=== PATIENT | male | born 1930 | race Caucasian/White ===

== ENCOUNTER 2016-04-09 11:14 | Inpatient (IN) | payer OTHER ==
[~2016-04-09] VITALS: Ht 177.8 cm; Wt 96.6 kg
[~2016-04-09 11:14] MED LIST: ACTOS15 M1 PO; AMLODIPINE BESY10 M1 PO; ATENOLOL50 M1 PO; CALCITRIOL0.25 MC1 PO; COUMADIN2 M1 PO; DRISDOL50000 UNIT PO; FUROSEMIDE40 M1 PO; LISINOPRIL40 M1 PO; ONGLYZA2.5 M1 PO; TERAZOSIN HCL10 M1 PO; ZOCOR20 M1 PO
--- NOTE | 2016-04-09 11:29 | NUR ---
85 Y/O MALE S/O SOB AND "A LITTLE" SWELLING TO BILATERAL LEGS X 1 WEEK; HX CHF AND FEELS THE SAME. C/O "DRY" COUGH. PT STATES HE TAKES LASIX DAILY, UNSURE IF HE TOOK YET TODAY. DENIES C/P. ALSO C/O DECREASED APPETITE/PO INTAKE. AFEBRILE.
--- NOTE | 2016-04-09 11:34 | ED DYSPNEA/ASTHMA COMPLAINT ---
History of Present Illness General Chief Complaint: Dyspnea (COPD, CHF, Other) Stated Complaint: SOB, DIFF BREATHING, HX CHF Source: patient, family, old records Exam Limitations: no limitations Vital Signs & Intake/Output Vital Signs & Intake/Output Vital Signs Date Time Temp Pulse Resp B/P Pulse O2 O2 Flow FiO2 Ox Delivery Rate 04/09 1350 50 24 141/62 93 Nasal 2.0L Cannula 04/09 1300 95 Nasal 2.0L Cannula 04/09 1128 97.1 65 18 143/61 93 Room Air Allergies Coded Allergies: NO KNOWN ALLERGIES (01/04/16) Reconcile Medications Amlodipine Besylate 10 MG TABLET 1 TAB PO QPM HEART (Reported) Atenolol 50 MG TABLET 1 TAB PO DAILY HEART (Reported) Calcitriol 0.25 MCG CAPSULE 1 CAP PO DAILY SUPPLEMENT (Reported) Ergocalciferol (Vitamin D2) (Drisdol) 50,000 UNIT CAPSULE 1 CAP PO Q 2 WEEKS SUPPLEMENT (Reported) Furosemide 40 MG TABLET 1 TAB PO DAILY WATER PILL (Reported) Lisinopril 40 MG TABLET 1 TAB PO DAILY HTN (Reported) Pioglitazone HCl (Actos) 15 MG TABLET 1 TAB PO QPM DIABETES (Reported) Saxagliptin HCl (Onglyza) 2.5 MG TABLET 1 TAB PO QPM DIABETES (Reported) Simvastatin (Zocor*) 20 MG TABLET 1 TAB PO QPM CHOLESTEROL (Reported) Terazosin HCl 10 MG CAPSULE 10 CAP PO QPM BPH (Reported) Warfarin Sodium (Coumadin) 2 MG TABLET 1 TAB PO AD BLOOD THINNER (Reported) Triage Note: 85 Y/O MALE S/O SOB AND "A LITTLE" SWELLING TO BILATERAL LEGS X 1 WEEK; HX CHF AND FEELS THE SAME. C/O "DRY" COUGH. PT STATES HE TAKES LASIX DAILY, UNSURE IF HE TOOK YET TODAY. DENIES C/P. ALSO C/O DECREASED APPETITE/PO INTAKE. AFEBRILE. Triage Nurses Notes Reviewed? yes Onset: Gradual Duration: week(s): (1) Timing: recent history Severity: moderate Activities at Onset: none Prior Episodes/Possible Cause: occasional episodes Modifying Factors: Improves With: immobilization. Worsens With: movement. Associated Symptoms: cough HPI: Patient is an 85-year-old male with history of CHF, hypertension resenting to the emergency department complaining of increasing shortness of breath or tingling on for the past one week. Dyspnea is worse with exertion. Denies chest pain palpitations. No nausea vomiting fevers or chills. He reports similar episode 3-4 months ago when he was admitted for CHF exacerbation. He does not use supplemental oxygen at home. His camera person is Dr. Romero. He missed his most recent checkup appointment and is rescheduled for next month. He does report increased lower extremity edema. Shortness of breath is also worse when he lays down. Denies taking anything to help with symptoms. He does take 40 mg Lasix daily, unsure if he took a already today. (JOSUE NUÑEZ) Past History Travel History Traveled to [place] past 21 day No Medical History Any Pertinent Medical History? 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 No (JOSUE NUÑEZ) Review of Systems Review of Systems Constitutional: Reports: malaise. Comments Review of systems: See HPI, All other systems negative. Constitutional, no chills fever or weight loss HEENT: No visual changes no sore throat no congestion Cardiovascular: No chest pain ,palpitation Skin, no jaundice no rashes Respiratory: No sputum or hemoptysis GI: No nausea no vomiting : No dysuria No hematuria Muscle skeletal: no back pain, no neck pain, Neurologic: No numbness no confusion NO PAYNE Psych: No stress anxiety Immunology: No splenectomy or history of AIDS (JOSUE NUÑEZ) Physical Exam Physical Exam General Appearance: well developed/nourished, alert, awake, mild distress Respiratory: decreased breath sounds, crackles, wheezing Comments: Well-developed well-nourished person in mild respiratory distress HEENT: Pupils equally round and reactive to light and accommodation. Nose is atraumatic. External auditory canal and Tympanic membranes clear. Pharynx normal. No swelling or edema. Neck: Normal inspection Back: Nontender Cardiovascular: Regular rate and rhythms no murmurs rubs or gallops, normal JVP Respiratory: Chest nontender. No respiratory distress.scattered wheezing and rhonchi at the bases to auscultation bilaterally Abdomen: Soft, obese, nontender nondistended, no appreciable organomegaly. Normal bowel sounds. No rebound or guarding. Extremity: 3+ pitting edema extending from the dorsum of both feet up to the patellas bilaterally. Nontender calves. Pedal pulses are 1+ bilaterally. Capillary refills intact in lower extremities bilaterally. Neuro: Alert oriented x3 Skin: No appreciable rash on exposed skin, skin is warm and dry. Psych: Mood and affect is normal, memory and judgment is normal. Core Measures ACS in differential dx? Yes Severe Sepsis Present: No Septic Shock Present: No (JESSICA MORGAN,JOSUE) Progress Differential Diagnosis: asthma, AMI, bronchitis, costochondritis, CHF, COPD, pulmonary embolism, pneumonia, pneumothorax Plan of Care: Orders Procedure Date/time Status Regular Diet 04/09 D Active OXYGEN SETUP (GEN) 04/09 1351 Active Saline Lock 04/09 1351 Active Admit to inpatient 04/09 1351 Active Vital Signs 04/09 1351 Active Activity/Ambulation 04/09 1351 Active Code Status 04/09 1351 Active EKG 04/09 1258 Active Telemetry/Metallurgical Tester 04/09 1133 Active TROPONIN LEVEL 04/09 1133 Complete MAGNESIUM 04/09 1133 Complete COMPREHENSIVE METABOLIC PANEL 04/09 1133 Complete CBC WITHOUT DIFFERENTIAL 04/09 1133 Complete B-TYPE NATRIURETIC PEP (BNP) 04/09 1133 Complete EKG 04/09 1115 Active Laboratory Tests 04/09/16 1142: Anion Gap 12, Estimated GFR 26 L, BUN/Creatinine Ratio 20.8, Glucose 188 H, Calcium 8.7, Magnesium 2.2, Total Bilirubin 0.6, AST 22, ALT 19 L, Alkaline Phosphatase 72, Troponin I 0.02, Zaj-H-Wjjsfwrogli Pept 5160 H, Total Protein 6.6, Albumin 3.7, Globulin 2.9, Albumin/Globulin Ratio 1.3, CBC w Diff NO MAN DIFF REQ, RBC 3.55 L, MCV 93.1, MCH 30.5, RDW 15.8 H, MPV 11.7 H, Gran % 82.7 H, Lymphocytes % 6.3 L, Monocytes % 9.1, Eosinophils % 1.8, Basophils % 0.1, Absolute Granulocytes 6.6 H, Absolute Lymphocytes 0.5 L, Absolute Monocytes 0.7 H, Absolute Eosinophils 0.1, Absolute Basophils 0, PUBS MCHC 32.8 L Diagnostic Imaging: Viewed by Me: Radiology Read. Discussed w/RAD: Radiology Read. Radiology Impression: PATIENT: JOHN SARMIENTO JR PRESENT AGE: 85 PATIENT ACCOUNT NO: [id number] : 31 LOCATION: [facility] ORDERING PHYSICIAN: JOSUE MORGAN SERVICE DATE: 04/09/16 EXAM TYPE: RAD - XRY-PORTABLE CHEST XRAY EXAMINATION: XR PORTABLE CHEST CLINICAL INFORMATION: SOB. COMPARISON: Chest portable 01/07/2016. TECHNIQUE: Portable view of the chest was obtained. FINDINGS: The lungs are expanded with no acute pneumonic process seen. However bibasilar process cannot be excluded. The heart size is enlarged with normal-appearing pulmonary vascularity. No gross bony abnormality seen. IMPRESSION: Hypoexpanded lungs with no acute pneumonic process seen. No major change from 01/07/2016. DICTATED BY: CARIN ALLISON MD DATE/TIME DICTATED:04/09/161207 DISTANCE EDUCATION COORDINATOR:BENJI DATE/TIME TRANSCRIBED:1207 CONFIDENTIAL, DO NOT COPY WITHOUT APPROPRIATE AUTHORIZATION. < Electronically signed in Other Vendor System> SIGNED BY: CARIN ALLISON MD 1212 Initial ED EKG: SINUS RHYTHM AT 67 BPM, FIRST-DEGREE av BLOCK, NONSPECIFIC INTRAVENTRICULAR CONDUCTION DELAY Comments: Arrival patient medicated with IV Lasix 60 mg. Also given DuoNeb treatment. Patient given urinal for urinary output. We will check I's and O's. Ambulatory oxygen saturation without any supplemental oxygen was down to 85%. Patient is in moderate respiratory distress with ambulation. Patient requiring supplemental oxygen. Patient will require admission for CHF. Close monitoring of creatinine during IV Lasix throughout hospital stay. Cardiology consult, pulmonology consulT. (JESSICA MORGAN,JOSUE) Departure Departure Time of Disposition: 1326 Disposition: STILL A PATIENT Condition: Stable Clinical Impression Primary Impression: CHF exacerbation Qualifiers: Congestive heart failure type: unspecified congestive heart failure type Qualified Code: I50.9 - Heart failure, unspecified Secondary Impressions: Fluid overload Qualifiers: Hypervolemia type: unspecified Qualified Code: E87.70 - Fluid overload, unspecified Hypoxia Referrals: NAV ROJAS MD (PCP/Family) Departure Forms: Customer Survey General Discharge Information Admission Note Spoke With: PEPE QUESADA MD Documentation of Exam: Documentation of any treatments & extenuating circumstances including Concerns Regarding Discharge (functional status, medication knowledge or non-compliance, living conditions, etc.) that warrant an admission rather than observation: Patient requiring supplemental oxygen which is new for this patient. Requiring IV diuretics for fluid overload, he will also require serial CMP use to monitor kidney function all receiving diuretics. Patient will need cardiology consultation, may need pulmonology consultation. Discharge at this time is medically harmful. (JOSUE NUÑEZ) PA/DELIVERY TABLE FEEDER Co-Sign Statement Statement: ED Attending supervision documentation- x I saw and evaluated the patient. I have also reviewed all the pertinent lab results and diagnostic results. I agree with the findings and the plan of care as documented in the PA's/DELIVERY TABLE FEEDER's documentation. [] I have reviewed the ED Record and agree with the PA's/DELIVERY TABLE FEEDER's documentation. [] Additions or exceptions (if any) to the PAs/DELIVERY TABLE FEEDER's note and plan are summarized below: [] (SANTA DOMINGUEZ,TONEY) Critical Care Note Critical Care Note Critical Care Time: 30-74 min (JOSUE NUÑEZ)
--- NOTE | 2016-04-09 11:45 | NUR ---
LABS DRAWN AND SENT (BLUE,SST,PINK,LAV,JEAN BAPTISTE)
--- NOTE | 2016-04-09 11:48 | NUR ---
O2 SAT 85% ON ROOM AIR, 02 APPLIED AT 2L, INCREASED TO 92%.
[2016-04-09 11:50] LABS: ABSOLUTE BASOPHIL COUNT 0 /CUMM (0.0-0.2); ABSOLUTE EOSINOPHIL COUNT 0.1 /CUMM (0.0-0.7); ABSOLUTE GRANULOCYTE CT 6.6 /CUMM (1.4-6.5); ABSOLUTE LYMPH COUNT 0.5 /CUMM (1.2-3.4); ABSOLUTE MONOCYTE COUNT 0.7 /CUMM (0.10-0.60); BASOPHIL % 0.1 % (0.0-2.0); EOSINOPHIL % 1.8 % (0-5); GRANULOCYTE % 82.7 % (42.2-75.2); MEAN CORPUSCULAR HGB 30.5 PG (27.0-31.0); MEAN CORPUSCULAR HGB CONC 32.8 G/DL (33.0-37.0); MEAN CORPUSCULAR VOLUME 93.1 FL (80.0-94.0); MEAN PLATELET VOLUME 11.7 FL (7.4-10.4); PLATELET COUNT 101 /CUMM (130-400); RBC DISTRIBUTION WIDTH 15.8 % (11.5-14.5); RED BLOOD CELL CT 3.55 /CUMM (4.70-6.10)
--- NOTE | 2016-04-09 12:12 | RADIOLOGY REPORT ---
EXAMINATION: XR PORTABLE CHEST CLINICAL INFORMATION: SOB. COMPARISON: Chest portable 01/07/2016. TECHNIQUE: Portable view of the chest was obtained. FINDINGS: The lungs are expanded with no acute pneumonic process seen. However bibasilar process cannot be excluded. The heart size is enlarged with normal-appearing pulmonary vascularity. No gross bony abnormality seen. IMPRESSION: Hypoexpanded lungs with no acute pneumonic process seen. No major change from 01/07/2016.
--- NOTE | 2016-04-09 13:29 | NUR ---
TO BE ADMITTED USING URINAL TO VOID AFTER LASIX
--- NOTE | 2016-04-09 15:08 | History & Physical ---
See Addendum MELCHOR DOMINGUEZ,[facility] 04/09/16 1508: General Information and HPI MD Statement: I have seen and personally examined JOHN SARMIENTO Brent KHAN and documented this H &P. The patient is a 85 year old M who presented with a patient stated chief complaint of shortness of breath. Source of Information: patient, old records Exam Limitations: no limitations History of Present Illness: This is a 85-year-old male with past medical history of hypertension, diabetes mellitus, hyperlipidemia, chronic kidney disease, stroke on Coumadin 2 mg for a long time on //// presented with progressive shortness breath. As per patient, he has been getting progressively short of breath for the past 2 days, associated with dry cough, denied any fever, chills, sick contacts, any recent travels. He also noticed worsening bilateral lower leg edema. At baseline, is not on any home oxygen, he sleeps in his recliner secondary to orthopnea and nocturnal dyspnea. He denied any nausea, vomiting, chest pain, palpitation, dizziness, abdominal pain, urinary symptoms, any changes in bowel movements, recent travels, any sick contacts. He was admitted in December of last year for same complaints and was treated for CHF exacerbation. He received his flu this year and pneumonia vaccine(last year) He lives with his in his home and at baseline is able to do all his daily chores by himself without any difficulty, he has never smoked, drinks alcohol occasionally but denies any illicit drug abuse. He follows Dr.Rabindran Rojas as his primary care physician and Dr. Romero his cleaner wall. Allergies/Medications Allergies: Coded Allergies: NO KNOWN ALLERGIES (01/04/16) Home Med list Amlodipine Besylate 10 MG TABLET 1 TAB PO QPM HEART (Reported) Atenolol 50 MG TABLET 1 TAB PO DAILY HEART (Reported) Calcitriol 0.25 MCG CAPSULE 1 CAP PO DAILY SUPPLEMENT (Reported) Ergocalciferol (Vitamin D2) (Drisdol) 50,000 UNIT CAPSULE 1 CAP PO Q 2 WEEKS SUPPLEMENT (Reported) Furosemide 40 MG TABLET 1 TAB PO DAILY WATER PILL (Reported) Lisinopril 40 MG TABLET 1 TAB PO DAILY HTN (Reported) Pioglitazone HCl (Actos) 15 MG TABLET 1 TAB PO QPM DIABETES (Reported) Saxagliptin HCl (Onglyza) 2.5 MG TABLET 1 TAB PO QPM DIABETES (Reported) Simvastatin (Zocor*) 20 MG TABLET 1 TAB PO QPM CHOLESTEROL (Reported) Terazosin HCl 10 MG CAPSULE 10 CAP PO QPM BPH (Reported) Warfarin Sodium (Coumadin) 2 MG TABLET 1 TAB PO AD BLOOD THINNER (Reported) Compliance With Home Meds: GOOD Past History Travel History Traveled to [place] past 21 day No Medical History Neurological: NONE EENT: NONE Cardiovascular: hypertension, hyperlipidemia, EDEDMA IN LEGS Respiratory: NONE Gastrointestinal: NONE Hepatic: NONE Renal: KIDNEY PROBLEMS Musculoskeletal: NONE Psychiatric: NONE Endocrine: diabetes Blood Disorders: NONE Cancer(s): NONE PERIANESTHESIA NURSE/Reproductive: NONE History of MRSA: No History of VRE: No History of CDIFF: No Pneumonia Vaccine: 04/06/08 Influenza Vaccine: 01/05/16 Surgical History Surgical History: non-contributory Past Family/Social History Family History Relations & Conditions if any Relation not specified for: *No pertinent family history Psychosocial History Where do you live? Home Who Do You Live With? spouse Services at Home: Nursing, None Primary Language: Macedonian Smoking Status: Never Smoked ETOH Use: occasional use Illicit Drug Use: denies illicit drug use Functional Ability ADLs Independent: dressing, eating, toileting, bathing. Ambulation: independent IADLs Independent: shopping, housework, finances, food prep, telephone, transportation , medication admin. Review of Systems Review of Systems Constitutional: Reports: see HPI. Denies: chills, fever. Cardiovascular: Denies: chest pain, palpitations. Respiratory: Reports: see HPI, short of breath. Denies: cough, hemoptysis, sputum production. GI: Denies: abdominal pain, constipation, diarrhea, nausea, vomiting. Genitourinary: Denies: dysuria, frequency. Exam & Diagnostic Data Last 24 Hrs of Vital Signs/I&O Vital Signs Date Time Temp Pulse Resp B/P Pulse O2 O2 Flow FiO2 Ox Delivery Rate 04/09 1350 50 24 141/62 93 Nasal 2.0L Cannula 04/09 1300 95 Nasal 2.0L Cannula 04/09 1128 97.1 65 18 143/61 93 Room Air Intake & Output 04/09 1600 04/09 0800 04/09 0000 Intake Total 10 Output Total 350 Balance -340 Intake, IV 10 Output, Urine 350 Patient 102.058 kg Weight Physical Exam General Appearance Alert, Oriented X3, Cooperative, No Acute Distress Cardiovascular irregularly irregular Lungs bilateral lower lung zones crackles Abdomen Normal Bowel Sounds, Soft, No Tenderness Extremities No Cyanosis, bilateral lower extremity edema 2+ Last 24 Hrs of Labs/Aniket: Laboratory Tests 04/09/16 1142: Anion Gap 12, Estimated GFR 26 L, BUN/Creatinine Ratio 20.8, Glucose 188 H, Calcium 8.7, Magnesium 2.2, Total Bilirubin 0.6, AST 22, ALT 19 L, Alkaline Phosphatase 72, Troponin I 0.02, Ryn-X-Ezahzhlhwpv Pept 5160 H, Total Protein 6.6, Albumin 3.7, Globulin 2.9, Albumin/Globulin Ratio 1.3, CBC w Diff NO MAN DIFF REQ, RBC 3.55 L, MCV 93.1, MCH 30.5, RDW 15.8 H, MPV 11.7 H, Gran % 82.7 H, Lymphocytes % 6.3 L, Monocytes % 9.1, Eosinophils % 1.8, Basophils % 0.1, Absolute Granulocytes 6.6 H, Absolute Lymphocytes 0.5 L, Absolute Monocytes 0.7 H, Absolute Eosinophils 0.1, Absolute Basophils 0, PUBS MCHC 32.8 L Diagnostic Data EKG Results Mobitz type II AV block, heart rate 69, QTC 489 CXR Results Hypoexpanded lungs with no acute pneumonic process seen. Assessment/Plan Assessment: This is a 85-year-old male with past medical history of hypertension, diabetes mellitus, hyperlipidemia, chronic kidney disease, stroke on Coumadin presented with progressive shortness breath. Whiteness upon presentation temperature 97.1 , pulse 65, respiratory rate 18, blood pressure 143/61, satting in high 90s on 2 L of nasal cannula oxygen. Pertinent labs H&H 10.8 and 33, platelets 101, creatinine 2.4, BUN 50, chest x- ray did not show any acute cardiopulmonary findings., Upon arrival he was in moderate respiratory distress with ambulation (satting around 85% )he received 60mg of IV Lasix and supplemental oxygen after which he reported improvement in his symptoms. We will admit the patient is admitted for and monitor for the following conditions: Acute hypoxic respiratory failure secondary to CHF exacerbation: Supplemental oxygen as needed to keep oxygen saturation above 90%. TRC/nebs as needed . BNP 5160 Low-dose IV Lasix 20 mg(secondary to worsening kidney function) twice a day with strict monitoring of I's and O's and daily weights. Patient sees Dr. Romero as his cleaner wall, will get cardiology consult in a.m. Rule out ACS: Continuous cardiac monitoring for any arrhythmias Will trend serial Troponins and EKG VIPUL on chronic kidney disease: Likely secondary to dehydration secondary to poor oral intake, creatinine 2.4 from . Avoid nephrotoxic drugs, lisinopril on hold, repeat BP in a.m. Nephrology consultation a.m., follow-up he'll follow-up with medications. Anemia : H&H low but stable, no active bleeding, will monitor repeat labs History of diabetes mellitus: Insulin sliding scale with frequent fingerstick glucose monitoring Diabetic diet History of hyperlipidemia: Continue home dose of atorvastatin 20 mg daily History of hypertension: We'll continue home dose of amlodipine 10 mg daily along with blood pressure monitoring every shift. History of stroke: Patient has been on Coumadin ever since stroke in 1994. He takes him a gram of Coumadin on Thursday to Thursday, will get INR and dose Coumadin accordingly Diet : Diabetic DVT prophylaxis with Coumadin Patient is full code As Ranked By This Provider Problem List: 1. VIPUL (acute kidney injury) 2. CKD (chronic kidney disease) 3. CHF exacerbation Qualifiers Congestive heart failure type: unspecified congestive heart failure type Qualified Code: I50.9 - Heart failure, unspecified Core Measures/Miscellaneous Acute Coronary Syndrome ACS Diagnosis: No Cerebrovascular Accident CVA/TIA Diagnosis: No Congestive Heart Failure CHF Diagnosis: Yes Date of most recent Echo: 01/06/16 Last Known EF %: 60 Venous Thromboembolism VTE Risk Factors: Acute medical illness, Age > 40 VTE Prophylaxis Ordered Inpt: Pharm- Warfarin No [facility] VTE prophylaxis d/t: No contraindications No VTE Pharm Prophylaxis d/t: No contraindications VTE Diagnosis: No VTE Type: NONE VTE Confirmed by (Test): NONE Severe Sepsis Severe Sepsis Present: No Septic Shock Septic Shock Present: No Miscellaneous Documentation Attending Case Discussed With: RADHA KIM MD Primary Care Physician: NAV ROJAS MD Patient sees these Specialists . Level of Patient Care: General Medicine HAILE BOYER 04/09/16 1525: Resident Review Statement Resident Statement: examined this patient, discussed with international controller, agreed with international controller, reviewed EMR data (avail) Other Findings: 85-year-old male with a past medical history of [id number] diabetes, hypertension, hyperlipidemia, CKD, stroke about 20 years ago currently on warfarin, Hx. of diastolic dysfunction with recent admission for acute CHF, who presented to the ED with chief complaints of worsening shortness of breath going on for the last 2 days. He experience shortness of breath with minimal exertion. He denies any changes in his compliance with medications, diet, denies fever or chills, any recent history of upper respiratory tract infection, denies any history of smoking, any illicit drug use, admits to orthopnea and has been sleeping in a recliner but denies any paroxysmal nocturnal dyspnea. Denies any chest pain, palpitations, nausea, vomiting, abdominal pain, headache, numbness, weakness, but does endorse bilateral lower extremity edema. He recently diascharged from last December for acute CHF exacerbation, he follows up with Dr. Romero . 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 Last seen by his cleaner wall was immediately after his discharge december, he missed his appointment last week. No changes on his medications since his last addmission, he is not on O2 at home. On Examination: Vitals at the time of admission blood pressure 141/62, respiratory rate 24, pulse 50 saturating 93 % on 2 L of oxygen via nasal cannula. He is alert and oriented 3 and in mild respiratory distress. Examination of the neck did not reveal any JVD, no cervical lymphadenopathy. Heart exam : normal S1, S2, no murmurs appreciated. Chest auscultation revealed bilateral crackles in lung bases. Abdominal exam is benign with abdomen soft, nontender, distended with bowel sounds present in all 4 quadrants. Examination of the lower extremities revealed bilateral 1+ edema extending up to the knee. Labs as above ABGs is pending, will f/u Chest x-ray: Hypoexpanded lungs with no acute pneumonic process seen. No major change from 01/07/2016. EKG revealed normal sinus rhythm,second-degree heart block Mobtiz II In the ED he received 60 mg of IV Lasix and treatment with albuterol and ipratropium. He feels slight improvement. Assessment and plan Admit patient to telemetry #Acute CHF exacerbation: Rule out ACS with troponins and EKG at 5:30 PM. first troponin is 0.02 Follow-up echocardiogram Follow-up cardiology consult Start him on Lasix 20 mg IV daily, given his worsened kidney function Strict I's and O's daily weight Will continue Amlodipine. #Bradycardia: Cadiology consult at am Will hold B-patricia #Anemia Will repeat CBC at am #VIPUL on CKD His creatinine: 2.4 has been elevated since last December, it's in his baseline since last December Will place nephrology consult at am Avoid nephrotoxic agents Hold lisinopril Follow-up BEP in a.m. #Chronically on Coumadin for Hx. of stroke: Will check INR STAT #Uqd-vdzafhv-ldnzygfpy diabetes mellitus We will hold his oral hypoglycemic agents NovoLog sliding scale Accu-Cheks 3 times a day at bedtime Follow-up hemoglobin A1c Diet Consistent carb 3 with 2 g sodium DVT prophylaxis On warfarin CODE STATUS Full code RADHA KIM MD 04/09/166: Attending MD Review Statement Attending Statement Attending MD Statement: examined this patient, discuss w/resident/PA/SCREEN TENDER, agreed w/resident/PA/SCREEN TENDER, reviewed EMR data (avail), reviewed images, amended to note Attending Assessment/Plan: 85 yo male with h/o HTN, DM2, HL, CKD, h/o CVA (on Coumadin), and diastolic CHF who presented in the [place] ED on the day of admission with 2 day h/o progressive dyspnea. He also noted progressive swelling of LE and weight gain. Had been watching weights and was told to notify MD if more than 3 lb weight gain. Was scheduled to see Dr. Romero last week, however was unable to keep appointment and Dr. Romero is currently away until April. He did not a mild non-productive cough. No fever, chills, lightheadedness, palpitations, or chest pain. He does note some orthopnea. Physical Exam: VS: T 97.1, P 65, R 18, BP 143/61, PO 93% RA- 95% 2L HEENT: eyes- PERRLA, EOMI crow- moist mucosa Neck: no JVD or bruits Chest: + rales 1/3 lung garcia bilaterally Cor: sl irreg rhythm, nl rate, nl S1, S2, no murm Abd: BS+, distended, non-tender Ext: 2+ edema bilat- right > left, pulses 1+ Neuro: alert & oriented x 3, non-focal exam Labs/Tests- as above Impression/Plan: #Acute on Chronic Diastolic CHF- last ECHO on last admit (01/05) had normal sys function with normal diastolic filling, however prior ECHO suggested diastolic dysfunction. Patient w/o ischemic symptoms and only non-specific lateral ST-T abnormalities that are similar to prior EKG. He stated he was told to notify MD if more than 3 lb weight gain and recognized greater weight gain. Plan: Admit to telemetry. Check serial troponin I's. IV Furosemide (60 mg given in ED) Follow I/O's and daily weights as per CHF protocol. Cardiology consult from Manager Sas covering for Dr. Romero. #CKD/VIPUL- mild increase in Creatinine noted (2.4). Concern with furosemide that may cause ATN if over diuresed. Most c/w diabetic nephropathy. Plan: Follow renal function closely . Agree with nephrology evaluation to follow. #DM2- is on Pioglitazone and Saxagliptin. Concern with renal failure. Plan: Will check glucoscans and use sliding scale insulin. Hold oral agents. Consider Endo consult. Hold Lisinopril at present. #HTN- as above, BP 140's sys. Plan: Continue Atenolol, Amlodipine. Hold Lisinopril as above. #BPH- on Terazosin. Plan: Continue Terazosin. #HL- on Simvastatin. Plan: Continue Simvastatin. #H/O CVA- on Coumadin. Plan: Check INR (not done in ED) and continue Coumadin- INR 2-3. If subtherapeutic consider check venous US LE. #Heart Block- 1 degree and ? Mobitz II on EKG. Has had on holter in past. Plan: Monitor on telemetry. Check Mg. #Chronic Anemia- H/H w/o change. Most likely secondary to renal failure. Plan: Will follow.
--- NOTE | 2016-04-09 16:14 | NUR ---
OFFERS NO COMPLAINTS, AWAITING BED ASSIGNMENT.
--- NOTE | 2016-04-09 17:00 | NUR ---
EKG DONE, TROPONIN DRAWN.
--- NOTE | 2016-04-09 17:00 | NUR ---
INSULIN NOT GIVEN FS DONE AFTER PT HAD EATEN DINNER. (173)
[2016-04-09 18:12] LABS: PT 22.9 SEC (9.4-12.5)
--- NOTE | 2016-04-09 19:01 | NUR ---
SPOKE WITH AFTER SCHOOL PROGRAM ASSISTANT WHO PUT IN ORDER FOR COUMADIN. VERIFIED WITH PT HE HAD NOT TAKEN HIS COUMADIN TODAY AND WILL LOOK FOR ORDER.
--- NOTE | 2016-04-09 19:24 | NUR ---
PHARMACY CALLED FOR MEDS
--- NOTE | 2016-04-09 19:40 | NUR ---
PT MEDICATED WITH COUMADIN AND LIPITOR PER ORDER (SEE MAR). PT RESTING IN RECLINING CHAIR. AWARE OF NO BED UPSTAIRS AT THIS TIME. CALM AND WATCHING TV. SON REMAINS AT BEDSIDE. WILL CTM.
--- NOTE | 2016-04-09 20:01 | NUR ---
URINE TRIO SENT TO LAB
--- NOTE | 2016-04-09 20:59 | NUR ---
PT HAS BED ASSIGNMENT 174-2
--- NOTE | 2016-04-09 21:25 | NUR ---
REPORT GIVEN TO KAYE HOLLINGSWORTH
--- NOTE | 2016-04-09 21:43 | Admission Certification ---
Admission Certification Certification Statement - As attending physician, I certify that at the time of - admission, based on clinical presentation, severity of - symptoms, need for further diagnostic testing and - therapeutic interventions, and risk of adverse outcomes - without in-hospital treatment, in my clinical assessment, - this patient requires an acute hospital stay for a minimum - of two nights or longer. I have also considered psychsocial - factors such as support system, advanced age, financial - issues, cognitive issues, and failed out-patient treatments, - past re-admission history, safety of patient, and lack of - compliance as applicable. Specific rationale supporting this admission is: Patient presents with significant dyspnea, respiratory failure secondary to acute diastolic CHF. Requires admission to telemetry, IV Lasix, Cardiology evaluation, serial troponin I levels.
--- NOTE | 2016-04-09 21:57 | NUR ---
BED IS CLEAN, TRANSPORT CALLED. AWAITING TRANSPORT AND WILL BRING PT UP.
[2016-04-09 22:28] VITALS: BP 142/56
--- NOTE | 2016-04-10 07:26 | PN- Housestaff ---
See Addendum Subjective Follow-up For: CHF exacerbation Tele-Events Since Last Visit: sinus rhythm, first-degree block and PVCs, heart rate 39-74 Subjective: Patient seen and examined this morning. He was sitting comfortably and is a recliner in no acute distress. He remains on 2 L of nasal cannula oxygen satting well and-90s. Afebrile, other vitals remained within normal limits. He reports that he feels much better as compared to yesterday, his diet edema is improving, no other complaints of chest pain, palpitation, dizziness. Review of Systems Constitutional: Denies: chills, fever. Cardiovascular: Reports: orthopena. Denies: chest pain, palpitations. Respiratory: Reports: orthopnea, short of breath. Denies: cough, sputum production. Gastrointestinal: Denies: abdominal pain, constipation, diarrhea, nausea, vomiting. Genitourinary: Denies: dysuria, frequency. Objective Last 24 Hrs of Vital Signs/I&O Vital Signs Date Time Temp Pulse Resp B/P Pulse O2 O2 Flow FiO2 Ox Delivery Rate 04/10 1220 Nasal 2.0L Cannula 04/10 0839 70 122/58 04/10 0838 97.7 70 20 122/58 95 Nasal 2.0L Cannula 04/10 0800 Nasal 2.0L Cannula 04/10 0000 46 142/56 04/09 2240 Nasal 2.0L Cannula 04/09 2228 97.6 62 20 142/56 95 Nasal 2.0L Cannula 04/09 1903 49 22 153/93 95 Nasal 2.0L Cannula 04/09 1635 98.4 84 20 160/72 99 Room Air 2.0L Intake & Output 04/10 1600 04/10 0800 04/10 0000 Intake Total 100 Output Total 250 500 Balance -150 -500 Intake, Oral 100 Output, Urine 250 500 Patient 104.553 kg 103.419 kg Weight Physical Exam General Appearance: Alert, Oriented X3, Cooperative, No Acute Distress Cardiovascular: Regular Rate, Normal S1, Normal S2, No Murmurs Lungs: mild basal b/l lung rales Abdomen: Normal Bowel Sounds, Soft, No Tenderness Extremities: No Clubbing, No Cyanosis, b/l lower ext edema 1+ Current Medications: Current Medications Sig/Nidia Start time Last Medication Dose Route Stop Time Status Admin Acetaminophen 650 MG Q6P PRN 04/09 1545 AC PO Albuterol Sulfate 3 ML Q4P PRN 04/10 1215 AC 04/10 INH 1209 Amlodipine Besylate 10 MG QPM 04/09 2200 AC PO Atenolol 50 MG DAILY 04/10 1000 AC 04/10 PO 0839 Atorvastatin Calcium 20 MG 1700 04/09 1700 AC 04/09 PO 1936 Calcitriol 0.25 MCG DAILY 04/10 1000 AC 04/10 PO 0839 Ergocalciferol 50,000 IU Q 2 WEEKS 04/23 1000 CAN PO Furosemide 20 MG 0800 & 1700 04/10 0800 AC 04/10 IV 0839 Insulin Human Regular 0 TIDAC/HS 04/09 1700 AC 04/10 SC 1255 Patient Medication 1 ED .STK-MED ONE 04/10 1345 DC Teaching ED 04/10 1346 Tamsulosin HCl 0.4 MG DAILY 04/10 1000 AC 04/10 PO 0839 Warfarin Sodium 2 MG COUMADIN 1700 ONE 04/10 1700 UNVr PO 04/10 1701 Warfarin Sodium 2 MG ONCE ONE 04/09 1900 DC 04/09 PO 04/09 1901 1936 Last 24 Hrs of Lab/Aniket Results Last 24 Hrs of Labs/Mics: Laboratory Tests 04/10/16 0630: Anion Gap 9, Estimated GFR 25 L, BUN/Creatinine Ratio 18.8, PT 27.3 H, INR 2.62 H 04/09/16 1959: Urine Color YEL, Urine Clarity CLEAR, Urine pH 6.0, Ur Specific [place] 1.015, Urine Protein TRACE H, Urine Ketones NEG, Urine Nitrite NEG, Urine Bilirubin NEG, Urine Urobilinogen 0.2, Ur Leukocyte Esterase NEG, Ur Microscopic SEDIMENT EXAMINED, Urine RBC RARE, Ur Epithelial Cells RARE, Urine Hemoglobin TRACE-LYSED H, Urine Glucose NEG 04/09/16 1730: Troponin I 0.03 Assessment/Plan Assessment: This is a 85-year-old male with past medical history of hypertension, diabetes mellitus, hyperlipidemia, chronic kidney disease, stroke on Coumadin presented with progressive shortness breath. Whiteness upon presentation temperature 97.1 , pulse 65, respiratory rate 18, blood pressure 143/61, satting in high 90s on 2 L of nasal cannula oxygen. Pertinent labs H&H 10.8 and 33, platelets 101, creatinine 2.4, BUN 50, chest x- ray did not show any acute cardiopulmonary findings., Upon arrival he was in moderate respiratory distress with ambulation (satting around 85% )he received 60mg of IV Lasix and supplemental oxygen after which he reported improvement in his symptoms. We are currently monitoring him for the following conditions: Acute hypoxic respiratory failure secondary to CHF exacerbation: Supplemental oxygen as needed to keep oxygen saturation above 90%. TRC/nebs as needed . BNP 5160 Low-dose IV Lasix 20 mg(secondary to worsening kidney function) twice a day with strict monitoring of I's and O's and daily weights. (Total intake 10 and total output 650 with a negative fluid balance of 640 in past 24 hours) Cardiology consulted, will f/u recs. Rule out ACS: Continuous cardiac monitoring for any arrhythmias Troponins and EKG negative for any acute findings. VIPUL on chronic kidney disease: Likely secondary to dehydration secondary to poor oral intake, creatinine 2.4 from . Avoid nephrotoxic drugs, lisinopril on hold, repeat BP in a.m. Nephrology consultation a.m., follow-up he'll follow-up with medications. Anemia : H&H low but stable, no active bleeding, will monitor repeat labs History of diabetes mellitus: Insulin sliding scale with frequent fingerstick glucose monitoring Diabetic diet History of hyperlipidemia: Continue home dose of atorvastatin 20 mg daily History of hypertension: We'll continue home dose of amlodipine 10 mg daily along with blood pressure monitoring every shift. History of stroke: Patient has been on Coumadin ever since stroke in 1994. He takes him a gram of Coumadin on Thursday to Thursday, will get INR and dose Coumadin accordingly Diet : Diabetic DVT prophylaxis with Coumadin Patient is full code Problem List: 1. CHF exacerbation 2. VIPUL (acute kidney injury) 3. CKD (chronic kidney disease) Pain Ratin Pain Location: none Pain Goal: Remain pain free Pain Plan: mild pp Tomorrow's Labs & Rationales: bep for lytes monitoring in setting of CHF
[2016-04-10 08:31] LABS: PT 27.3 SEC (9.4-12.5)
[2016-04-10 08:38] VITALS: BP 122/58
--- NOTE | 2016-04-10 13:32 | Cons- Endocrinology ---
General Information and HPI Consulting Request Date of Consult: 04/10/16 Requested By: medical team Reason for Consult: uncontrolled diabetes Source of Information: patient Exam Limitations: no limitations History of Present Illness: This 85 year old man has a history of many years of diabetes typre 2. He also has a history of hypertension and chronic kidney disease. He presents with increased shortness of breath felt to be secondary to CHF.The patient has been on pioglitazone and saxagliptin at home. In the hospital he does not seem to require much insulin to control his diabetes. Allergies/Medications Allergies: Coded Allergies: NO KNOWN ALLERGIES (01/04/16) Home Med List: Amlodipine Besylate 10 MG TABLET 1 TAB PO QPM HEART (Reported) Azithromycin 250 MG TABLET 1 TAB PO DAILY lung infection Calcitriol 0.25 MCG CAPSULE 1 CAP PO DAILY SUPPLEMENT (Reported) Ergocalciferol (Vitamin D2) (Drisdol) 50,000 UNIT CAPSULE 1 CAP PO Q 2 WEEKS SUPPLEMENT (Reported) Furosemide 40 MG TABLET 1 TAB PO DAILY WATER PILL (Reported) Lisinopril 20 MG TABLET 1 TAB PO DAILY blood pressure Saxagliptin HCl (Onglyza) 2.5 MG TABLET 1 TAB PO QPM DIABETES (Reported) Simvastatin (Zocor*) 20 MG TABLET 1 TAB PO QPM CHOLESTEROL (Reported) Terazosin HCl 10 MG CAPSULE 10 CAP PO QPM BPH (Reported) Warfarin Sodium (Coumadin) 2 MG TABLET 1 TAB PO AD BLOOD THINNER (Reported) Current Medications: Current Medications Sig/Nidia Start time Last Medication Dose Route Stop Time Status Admin Acetaminophen 650 MG Q6P PRN 04/09 1545 AC PO Albuterol Sulfate 3 ML Q4P PRN 04/10 1215 AC 04/10 INH 1209 Amlodipine Besylate 10 MG QPM 04/09 2200 AC PO Atenolol 50 MG DAILY 04/10 1000 AC 04/10 PO 0839 Atorvastatin Calcium 20 MG 1700 04/09 1700 AC 04/09 PO 1936 Calcitriol 0.25 MCG DAILY 04/10 1000 AC 04/10 PO 0839 Ergocalciferol 50,000 IU Q 2 WEEKS 04/23 1000 CAN PO Furosemide 20 MG 0800 & 1700 04/10 0800 AC 04/10 IV 0839 Insulin Human Regular 0 TIDAC/HS 04/09 1700 AC 04/10 SC 1255 Tamsulosin HCl 0.4 MG DAILY 01/19 1000 AC 04/10 PO 0839 Warfarin Sodium 2 MG ONCE ONE 04/090 DC 04/09 PO 04/09 190 1936 Review of Systems Review of Systems Constitutional: Denies: chills, fever. Cardiovascular: Denies: chest pain. Respiratory: Reports: cough, short of breath. GI: Denies: abdominal pain. Skin: Reports: no symptoms. Neurological/Psychological: Denies: confusion. Hematologic/Endocrine: Denies: polyuria, polydipsia. 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 Home Who Do You Live With? spouse Services at Home: Nursing, None Primary Language: Welsh Smoking Status: Never Smoked ETOH Use: occasional use Illicit Drug Use: denies illicit drug use Functional Ability ADLs Independent: dressing, eating, toileting, bathing. Ambulation: independent IADLs Independent: shopping, housework, finances, food prep, telephone, transportation , medication admin. Exam & Diagnostic Data Last 24 Hrs of Vital Signs/I&O Vital Signs Date Time Temp Pulse Resp B/P Pulse O2 O2 Flow FiO2 Ox Delivery Rate 04/10 1220 Nasal 2.0L Cannula 04/10 0839 70 122/58 04/10 0838 97.7 70 20 122/58 95 Nasal 2.0L Cannula 04/10 0800 Nasal 2.0L Cannula 04/10 0000 46 142/56 04/09 2240 Nasal 2.0L Cannula 04/09 2228 97.6 62 20 142/56 95 Nasal 2.0L Cannula 04/09 1903 49 22 153/93 95 Nasal 2.0L Cannula 04/09 1635 98.4 84 20 160/72 99 Room Air 2.0L 04/09 1350 50 24 141/62 93 Nasal 2.0L Cannula Intake & Output 04/10 1600 04/10 0800 04/10 0000 Intake Total 100 Output Total 250 500 Balance -150 -500 Intake, Oral 100 Output, Urine 250 500 Patient 231 lb 228 lb Weight Vital Signs Date Time Temp Pulse Resp B/P Pulse O2 O2 Flow FiO2 Ox Delivery Rate 04/10 1220 Nasal 2.0L Cannula 04/10 0839 70 122/58 04/10 0838 97.7 70 20 122/58 95 Nasal 2.0L Cannula 04/10 0800 Nasal 2.0L Cannula 04/10 0000 46 142/56 04/09 2240 Nasal 2.0L Cannula 04/09 2228 97.6 62 20 142/56 95 Nasal 2.0L Cannula 04/09 1903 49 22 153/93 95 Nasal 2.0L Cannula 04/09 1635 98.4 84 20 160/72 99 Room Air 2.0L 04/09 1350 50 24 141/62 93 Nasal 2.0L Cannula Intake & Output 04/10 1600 04/10 0800 04/10 0000 Intake Total 100 Output Total 250 500 Balance -150 -500 Intake, Oral 100 Output, Urine 250 500 Patient 231 lb 228 lb Weight Physical Exam General Appearance: well developed/nourished Eyes: Bilateral: normal appearance. Neck: normal inspection Respiratory: decreased breath sounds (bases) Gastrointestinal: distention, possible fluid wave Extremities: swelling (2-3+ of the lower legs) Labs/Aniket Results: Laboratory Tests 04/10 04/09 04/09 0630 1959 1730 Chemistry Sodium (137 - 145 mmol/L) 144 Potassium (3.5 - 5.1 mmol/L) 4.5 Chloride (98 - 107 mmol/L) 111 H Carbon Dioxide (22 - 30 mmol/L) 24 Anion Gap (5 - 16) 9 BUN (9 - 20 mg/dL) 47 H Creatinine (0.7 - 1.2 mg/dL) 2.5 H Estimated GFR (>60 ml/min) 25 L BUN/Creatinine Ratio (7 - 25 %) 18.8 Troponin I (<0.11 ng/ml) 0.03 Coagulation PT (9.4 - 12.5 SEC) 27.3 H INR (0.90 - 1.17) 2.62 H Urines Urine Color (YEL,AMB,STR) YEL Urine Clarity (CLEAR) CLEAR Urine pH (5.0 - 8.0) 6.0 Ur Specific Crowley (1.001 - 1.035) 1.015 Urine Protein (NEG,<30 MG/DL) TRACE H Urine Ketones (NEG) NEG Urine Nitrite (NEG) NEG Urine Bilirubin (NEG) NEG Urine Urobilinogen (0.1 - 1.0 EU/dl) 0.2 Ur Leukocyte Esterase (NEG) NEG Ur Microscopic SEDIMENT EXAMINED Urine RBC (0 - 5 /HPF) RARE Ur Epithelial Cells (NONE,FEW) RARE Urine Hemoglobin (NEG) TRACE-LYSED H Urine Glucose (N MG/DL) NEG Assessment/Plan Assessment/Plan This 85-year-old man with a known history of diabetes for at least 25 years presents with congestive heart failure. He was on pioglitazone and saxagliptin at home. His blood sugars according to the readings he was getting at home were quite good. I agree that we need to discontinue pioglitazone in view of congestive heart failure and fluid retention. We should also leave him off the saxagliptin at this time. It'll take a few weeks for the effects of the pioglitazone to wear off. The patient does not appear to have large insulin requirements based on his present sugar readings and the small amount of medication he was taking at home. Hemoglobin A1c should be checked. We should leave him on a diabetic sodium diet and continue to monitor his sugars. I would change his pre-meal coverage at this time to NovoLog. NovoLog coverage before meals should be 80-150 give 2 units NovoLog, 151 -200 give 3 units NovoLog, 201-250 give 4 units NovoLog, 251-300 give 5 units NovoLog, 301-350 give 6 units NovoLog, 351 of 400 give 7 units NovoLog. A separate bedtime sliding scale NovoLog should be written. Bedtime sliding scale NovoLog should be less than 250 give no insulin, 251-300 give 2 units NovoLog 301-350 give 3 units NovoLog, 351 of 400 give 4 units NovoLog. Do not think he needs to be on basal insulin at this time but this may become necessary at a later point. The patient should have an ultrasound of his abdomen to check for ascites. Consult Acknowledgment - Thank you for your consult request.
--- NOTE | 2016-04-10 15:14 | Cons- Cardiology ---
General Information and HPI Consulting Request Date of Consult: 04/10/16 Requested By: RADHA KIM MD History of Present Illness: Ronnie is an 85 year old male with history of hypertension, dyslipidemia, diabetes and renal insufficiency. He has also had shortness of breath with orthopnea on several occasions in the past. A couple days ago this patient noted shortness of breath beyond his baseline with persistent orthopnea. He has been sleeping in a reclining chair to help his breathing for years. He also noted a worsening of his abdominal swelling and leg swelling, both of which are not completely new symptoms. He denies any cough, fever or chills. He also denies chest pain, pressure, tigthness, lightheadedness or palpitations. There has not been any recent changes to his medications. At his baseline he is only mildly active. Labs on admission were remarkable for a stable but elevated creatinine of 2.5. His chest X-ray did not disclose any pulmonary edema although the lungs were hypoexpanded. The patient's last echocardiogram showed a normal EF of 60% with mild MR, moderate to severe pulmonary hypertension and a small pericardial effusion. Allergies/Medications Allergies: Coded Allergies: NO KNOWN ALLERGIES (01/04/16) Home Med List: Amlodipine Besylate 10 MG TABLET 1 TAB PO QPM HEART (Reported) Atenolol 50 MG TABLET 1 TAB PO DAILY HEART (Reported) Calcitriol 0.25 MCG CAPSULE 1 CAP PO DAILY SUPPLEMENT (Reported) Ergocalciferol (Vitamin D2) (Drisdol) 50,000 UNIT CAPSULE 1 CAP PO Q 2 WEEKS SUPPLEMENT (Reported) Furosemide 40 MG TABLET 1 TAB PO DAILY WATER PILL (Reported) Lisinopril 40 MG TABLET 1 TAB PO DAILY HTN (Reported) Pioglitazone HCl (Actos) 15 MG TABLET 1 TAB PO QPM DIABETES (Reported) Saxagliptin HCl (Onglyza) 2.5 MG TABLET 1 TAB PO QPM DIABETES (Reported) Simvastatin (Zocor*) 20 MG TABLET 1 TAB PO QPM CHOLESTEROL (Reported) Terazosin HCl 10 MG CAPSULE 10 CAP PO QPM BPH (Reported) Warfarin Sodium (Coumadin) 2 MG TABLET 1 TAB PO AD BLOOD THINNER (Reported) Review of Systems Review of Systems: A twelve point review of systems is unremarkable. 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 Home Who Do You Live With? spouse Services at Home: Nursing, None Primary Language: Gambian Smoking Status: Never Smoked ETOH Use: two drinks per day Illicit Drug Use: denies illicit drug use Functional Ability ADLs Independent: dressing, eating, toileting, bathing. Ambulation: independent IADLs Independent: shopping, housework, finances, food prep, telephone, transportation , medication admin. Exam & Diagnostic Data Vital Signs and I&O Vital Signs Date Time Temp Pulse Resp B/P Pulse O2 O2 Flow FiO2 Ox Delivery Rate 04/10 1220 Nasal 2.0L Cannula 04/10 0839 70 122/58 04/10 0838 97.7 70 20 122/58 95 Nasal 2.0L Cannula 04/10 0800 Nasal 2.0L Cannula 04/10 0000 46 142/56 04/09 2240 Nasal 2.0L Cannula 04/09 2228 97.6 62 20 142/56 95 Nasal 2.0L Cannula 04/09 1903 49 22 153/93 95 Nasal 2.0L Cannula 04/09 1635 98.4 84 20 160/72 99 Room Air 2.0L Intake & Output 04/10 1600 04/10 0800 04/10 0000 04/09 1600 04/09 0800 04/09 0000 Intake Total 100 10 Output Total 250 500 350 Balance -150 -500 -340 Intake, IV 10 Intake, Oral 100 Output, Urine 250 500 350 Patient 231 lb 228 lb 225 lb Weight Physical Exam: General: WD/obese male in NAD; alert and oriented x 3 HEENT: NC/AT, PERRL, EOMI Neck: no JVD, no carotid bruit Heart: RRR w/o murmur Lungs: clear bilaterally Abdomen: soft, obese, distended without tympany, positive fluid wave, +ve bowel sounds Extremities: 2+ leg edema bilaterally Assessment/Plan Assessment/Plan * This patient does not appear to have left heart failure although right heart failure is possible. I did not note any JVD while the patient was sitting up but he has had a prior echocardiogram that showed pulmonary hypertension and a small pericardial effusion which can cause symptoms of right heart failure. Certainly ascites and lower extremity edema are symptoms associated with RV failure although other etiologies of these physical findings should be considered. * I recommend a workup including a repeat echocardiogram to evaluated for RV dysfunction, a persistent or worsening pericardial effusion and to assess his RV pressures. Please check his TSH and free T4, check urine for protein and if elevated consider a 24 hours protein to assess for nephrotic syndrome. Recheck his lipid profile. Obtain an abdominal ultrasound. * The patient's shortness of breath is likely due to restriction of lung expansion in the setting of a massively enlarged and firm abdomen combined with overall obesity and deconditioning. Again, the abdominal ultrasound may help in determining if there is ascites and if so consideration should be given to paracentesis. Hold coumadin for now. I agree with stopping Actos since this can promote fluid overload and CHF. Stop Amlodipine since this medication can also cause fluid retention. Continue Lasix at 40mg IV while following his BUN, creatinine and potassium. Consult Acknowledgment - Thank you for your consult request.
[2016-04-10 16:02] VITALS: BP 120/64
--- NOTE | 2016-04-10 18:59 | ULTRASOUND REPORT ---
EXAMINATION: US ABDOMEN LIMITED CLINICAL INFORMATION: Abdominal distention.. COMPARISON: None TECHNIQUE: Real-time imaging of the right upper quadrant abdominal viscera. Color Doppler exam utilized. FINDINGS: FREE FLUID: There is a small left pleural effusion at the lung base. There is no abdominal ascites. IMPRESSION: No abdominal ascites. Small left pleural effusion.
--- NOTE | 2016-04-10 19:12 | ECHOCARDIOGRAM REPORT ---
JOHN SARMIENTO Age: 85 : 1930 Gender: M Exam Date: 04/10/2016 10:26 Exam Location: [facility] Ht (in): 70 Wt (lb): 225 BSA: 2.28 BP: 160 / 72 Ordering Physician: HAILE SANTORO MD Referring Physician: HAILE SANTORO MD Technologist: Fox Thompson [facility] Room Number: 174-02 Indications: ARRHYTHMIAS Rhythm: Sinus Technical Quality: Fair FINDINGS Left Ventricle Normal size left ventricle. No obvious regional wall motion abnormalities. Left ventricular wall thickness moderately increased. Normal left ventricular ejection fraction estimated at 60-65%. Right Ventricle Normal right ventricular size and function. Right Atrium Right atrial dilatation. Left Atrium Moderate left atrial dilatation. Mitral Valve Mild thickening/calcification of the anterior mitral valve leaflet. Mitral annular calcification. [id number] mitral regurgitation. Aortic Valve Trileaflet aortic valve. Diffuse thickening (sclerosis) of the aortic valve cusps without reduced excursion. No aortic stenosis. No aortic regurgitation. Tricuspid Valve Tricuspid valve not well visualized, grossly normal. Mild-to- moderate tricuspid regurgitation. Right ventricular systolic pressure estimated at 42 mmHg. Pulmonic Valve Pulmonic valve not well visualized, grossly normal. Pericardium Small pericardial effusion. Left pleural effusion. Great Vessels Mildly dilated proximal ascending aorta (tube). CONCLUSIONS 1. Moderate aortic sclerosis is present with no valvular stenosis or insufficiency. 2. Thickening and calcification of the mitral leaflets is present with anular calcification and mild to moderate mitral insufficiency with moderate left atrial enlargement. 3. A very small posterior pericardial effusion is present. 4. A moderate sized left pleural effusion is present. 5. The left ventricular chamber size and systolic function appear normal with mild to moderate concentric hypertrophy and no obvious resting wall motion abnormalities. 6. The right heart structures are grossly normal with mild to moderate tricuspid insufficiency and no significant pulmonary hypertension. 7. Minimal dilatation of the ascending aorta is present Aniya Watt M.D. (Electronically Signed) Final Date: 10 April 2016 19:11 MEASUREMENTS (Male / Female) Normal Values 2D ECHO LV Diastolic Diameter PLAX 4.7 cm 4.2 - 5.9 / 3.9 - 5.3 cm LV Systolic Diameter PLAX 3.6 cm 2.1 - 4.0 cm LV Fractional Shortening PLAX 23.4 % 25 - 46 % LV Ejection Fraction 2D Teich 46.8 % IVS Diastolic Thickness 1.6 cm LVPW Diastolic Thickness 1.4 cm LV Relative Wall Thickness 0.6 LVOT Diameter 1.9 cm Aortic Root Diameter 3.8 cm LA Systolic Diameter LX 4.8 cm 3.0 - 4.0 / 2.7 - 3.8 cm LV Ejection Fraction MOD BP 67.1 % >= 55 % LV Diastolic Length 4C 10.0 cm 6.9 - 10.3 cm LV Diastolic Area 4C 44.1 cm LV Diastolic Volume MOD 4C 158.0 cm LV Ejection Fraction MOD 4C 67.1 % LV Stroke Volume MOD 4C 106.0 cm LV Systolic Length 4C 8.0 cm LV Systolic Area 4C 22.1 cm LV Systolic Volume MOD 4C 52.0 cm LV Ejection Fraction MOD 2C 63.8 % LV Diastolic Volume 4C AL 165.3 cm 85 - 139 / 69 - 109 cm LV Systolic Volume 4C AL 52.1 cm LV Ejection Fraction 4C AL 68.5 % LV Stroke Volume 4C AL 113.2 cm LV Ejection Fraction 2C AL 66.2 % LA Volume 81.0 cm 18 - 58 / 22 - 52 cm Ascending Aorta Diameter 3.3 cm DOPPLER AV Peak Velocity 149.0 cm/s AV Peak Gradient 8.9 mmHg AV Mean Velocity 100.0 cm/s AV Mean Gradient 5.0 mmHg AV Velocity Time Integral 32.2 cm LVOT Peak Velocity 92.5 cm/s LVOT Peak Gradient 3.4 mmHg LVOT Mean Velocity 68.2 cm/s LVOT Mean Gradient 2.0 mmHg LVOT Velocity Time Integral 20.6 cm LVOT Stroke Volume 58.4 cm AV Area Cont Eq vti 1.8 cm AV Area Cont Eq pk 1.8 cm MV Peak Velocity 138.0 cm/s MV Peak Gradient 7.6 mmHg MV Mean Velocity 90.4 cm/s MV Mean Gradient 4.0 mmHg Mitral E Point Velocity 104.0 cm/s MV PHT Velocity 149.0 cm/s MV Deceleration Powell 708.0 cm/s MV Pressure Half Time 63.1 ms MV Area PHT 3.5 cm MV Deceleration Time 173.0 ms TR Peak Velocity 326.0 cm/s TR Peak Gradient 42.5 mmHg PV Peak Velocity 114.0 cm/s PV Peak Gradient 5.2 mmHg PV Mean Velocity 77.0 cm/s PV Mean Gradient 3.0 mmHg PV Velocity Time Integral 23.6 cm LV E' Lateral Velocity 12.4 cm/s Mitral E to LV E' Lateral Ratio 8.4 LV E' Septal Velocity 7.5 cm/s Mitral E to LV E' Septal Ratio 13.8
--- NOTE | 2016-04-10 19:17 | Cons- Cardiology ---
General Information and HPI Consulting Request Date of Consult: 04/10/16 Requested By: RADHA KIM MD Reason for Consult: worsening dyspnea Source of Information: patient, old records History of Present Illness: Mr. Arango is a very nice 85 year old male with a history of HFpEF who is usually followed by Dr. Aldo Romero who I am covering for today. He was last seen by Dr. Romero several months ago and has a followup visit scheduled for April. 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 He is now admitted to the hospital with progressive dyspnea over the last several weeks and some worsening of his leg edema. He denies any other cardiovascular symptoms. He notes to me that he has not been enrolled in the CHF clinic previously. His last admission was in December of 2015 for CHF exacerbation. Today he is feeling somewhat better after about 800 cc diuresis. Allergies/Medications Allergies: Coded Allergies: NO KNOWN ALLERGIES (01/04/16) Home Med List: Amlodipine Besylate 10 MG TABLET 1 TAB PO QPM HEART (Reported) Atenolol 50 MG TABLET 1 TAB PO DAILY HEART (Reported) Calcitriol 0.25 MCG CAPSULE 1 CAP PO DAILY SUPPLEMENT (Reported) Ergocalciferol (Vitamin D2) (Drisdol) 50,000 UNIT CAPSULE 1 CAP PO Q 2 WEEKS SUPPLEMENT (Reported) Furosemide 40 MG TABLET 1 TAB PO DAILY WATER PILL (Reported) Lisinopril 40 MG TABLET 1 TAB PO DAILY HTN (Reported) Pioglitazone HCl (Actos) 15 MG TABLET 1 TAB PO QPM DIABETES (Reported) Saxagliptin HCl (Onglyza) 2.5 MG TABLET 1 TAB PO QPM DIABETES (Reported) Simvastatin (Zocor*) 20 MG TABLET 1 TAB PO QPM CHOLESTEROL (Reported) Terazosin HCl 10 MG CAPSULE 10 CAP PO QPM BPH (Reported) Warfarin Sodium (Coumadin) 2 MG TABLET 1 TAB PO AD BLOOD THINNER (Reported) Current Medications: Current Medications Sig/Nidia Start time Last Medication Dose Route Stop Time Status Admin Acetaminophen 650 MG Q6P PRN 04/09 1545 AC PO Albuterol Sulfate 3 ML Q4P PRN 04/10 1215 AC 04/10 INH 1209 Amlodipine Besylate 10 MG QPM 04/09 2200 DC PO Atenolol 50 MG DAILY 04/10 1000 AC 04/10 PO 0839 Atorvastatin Calcium 20 MG 1700 04/09 1700 AC 04/10 PO 1723 Calcitriol 0.25 MCG DAILY 04/10 1000 AC 04/10 PO 0839 Furosemide 40 MG 0800 & 1700 04/10 1700 AC 04/10 IV 1723 Furosemide 20 MG 0800 & 1700 04/10 0800 DC 04/10 IV 0839 Insulin Human Regular 0 TIDAC/HS 04/09 1700 AC 04/10 SC 1723 Patient Medication 1 ED .STK-MED ONE 04/10 1345 DC Teaching ED 04/10 1346 Tamsulosin HCl 0.4 MG DAILY 04/10 1000 AC 04/10 PO 0839 Warfarin Sodium 2 MG COUMADIN 1700 ONE 04/10 1700 CAN PO 04/10 1701 Past History Travel History Traveled to [place] past 21 day No Medical History Blood Transfusion Hx: Yes Neurological: CVA ON COUMADIN EENT: macular degeneration Cardiovascular: CHF, hypertension, hyperlipidemia, leg edema Respiratory: NONE Gastrointestinal: NONE Hepatic: NONE Renal: KIDNEY PROBLEMS Musculoskeletal: NONE Psychiatric: NONE Endocrine: diabetes Blood Disorders: NONE Cancer(s): NONE AUDIO OPERATOR/Reproductive: NONE Surgical History Surgical History: umbilical hernia repair Family History Relations & Conditions If Any: Relation not specified for: *No pertinent family history Psychosocial History Where Do You Live? Home Who Do You Live With? spouse Services at Home: Nursing, None Primary Language: [place] Smoking Status: Never Smoked ETOH Use: two drinks per day Illicit Drug Use: denies illicit drug use Functional Ability ADLs Independent: dressing, eating, toileting, bathing. Ambulation: independent IADLs Independent: shopping, housework, finances, food prep, telephone, transportation , medication admin. Exam & Diagnostic Data Vital Signs and I&O Vital Signs Date Time Temp Pulse Resp B/P Pulse O2 O2 Flow FiO2 Ox Delivery Rate 04/10 1602 98.2 76 20 120/64 97 Nasal 2.0L Cannula 04/10 1220 Nasal 2.0L Cannula 04/10 0839 70 122/58 04/10 0838 97.7 70 20 122/58 95 Nasal 2.0L Cannula 04/10 0800 Nasal 2.0L Cannula 04/10 0000 46 142/56 04/09 2240 Nasal 2.0L Cannula 04/09 2228 97.6 62 20 142/56 95 Nasal 2.0L Cannula Intake & Output 04/10 1600 04/10 0800 04/10 0000 04/09 1600 04/09 0800 04/09 0000 Intake Total 480 100 10 Output Total 500 250 500 350 Balance -20 -150 -500 -340 Intake, IV 10 Intake, Oral 480 100 Output, Urine 500 250 500 350 Patient 231 lb 228 lb 225 lb Weight Physical Exam: General: WD, WN, WM in NAD with VSS HEENT: normal Neck: JVP normal, Carotids normal bilaterally. Chest: scattered rhoncho Heart: S1, S2, 1-2 / 6 systolic murmur Abdomen: Normal Ext: LE edema PV: normal bilaterally Labs/Aniket Results: Laboratory Tests 04/10 04/09 04/09 0630 1959 1730 Chemistry Sodium (137 - 145 mmol/L) 144 Potassium (3.5 - 5.1 mmol/L) 4.5 Chloride (98 - 107 mmol/L) 111 H Carbon Dioxide (22 - 30 mmol/L) 24 Anion Gap (5 - 16) 9 BUN (9 - 20 mg/dL) 47 H Creatinine (0.7 - 1.2 mg/dL) 2.5 H Estimated GFR (>60 ml/min) 25 L BUN/Creatinine Ratio (7 - 25 %) 18.8 Troponin I (<0.11 ng/ml) 0.03 Triglycerides (<150 mg/dL) 86 Cholesterol (< 200 MG/DL) 99 LDL Cholesterol, Calc (65 - 129 mg/dL) 41 L HDL Cholesterol (40 - 60 mg/dL) 41 Cholesterol/HDL Ratio (0.00 - 4.88 %) 2 TSH (0.270 - 4.200 uIU/mL) 6.240 H Free T4 (0.85 - 1.93 ng/dL) 1.20 Total T3 (0.97 - 1.69 ng/mL) 1.04 Coagulation PT (9.4 - 12.5 SEC) 27.3 H INR (0.90 - 1.17) 2.62 H Urines Urine Color (YEL,AMB,STR) YEL Urine Clarity (CLEAR) CLEAR Urine pH (5.0 - 8.0) 6.0 Ur Specific [place] (1.001 - 1.035) 1.015 Urine Protein (NEG,<30 MG/DL) TRACE H Urine Ketones (NEG) NEG Urine Nitrite (NEG) NEG Urine Bilirubin (NEG) NEG Urine Urobilinogen (0.1 - 1.0 EU/dl) 0.2 Ur Leukocyte Esterase (NEG) NEG Ur Microscopic SEDIMENT EXAMINED Urine RBC (0 - 5 /HPF) RARE Ur Epithelial Cells (NONE,FEW) RARE Urine Hemoglobin (NEG) TRACE-LYSED H Urine Glucose (N MG/DL) NEG 04/09 1142 Chemistry Sodium (137 - 145 mmol/L) 145 Potassium (3.5 - 5.1 mmol/L) 4.8 Chloride (98 - 107 mmol/L) 111 H Carbon Dioxide (22 - 30 mmol/L) 21 L Anion Gap (5 - 16) 12 BUN (9 - 20 mg/dL) 50 H Creatinine (0.7 - 1.2 mg/dL) 2.4 H Estimated GFR (>60 ml/min) 26 L BUN/Creatinine Ratio (7 - 25 %) 20.8 Glucose (65 - 99 mg/dL) 188 H Calcium (8.4 - 10.2 mg/dL) 8.7 Magnesium (1.6 - 2.3 mg/dL) 2.2 Total Bilirubin (0.2 - 1.3 mg/dL) 0.6 AST (17 - 59 U/L) 22 ALT (21 - 72 U/L) 19 L Alkaline Phosphatase (< 127 U/L) 72 Troponin I (<0.11 ng/ml) 0.02 Pud-N-Gekyqvesdfb Pept (<125 pg/mL) 5160 H Total Protein (6.3 - 8.2 g/dL) 6.6 Albumin (3.5 - 5.0 g/dL) 3.7 Globulin (1.9 - 4.2 gm/dL) 2.9 Albumin/Globulin Ratio (1.1 - 2.2 %) 1.3 Coagulation PT (9.4 - 12.5 SEC) 22.9 H INR (0.90 - 1.17) 2.20 H Hematology CBC w Diff NO MAN DIFF REQ WBC (4.8 - 10.8 /CUMM) 8.0 RBC (4.70 - 6.10 /CUMM) 3.55 L Hgb (14.0 - 18.0 G/DL) 10.8 L Hct (42 - 52 %) 33.0 L MCV (80.0 - 94.0 FL) 93.1 MCH (27.0 - 31.0 PG) 30.5 RDW (11.5 - 14.5 %) 15.8 H Plt Count (130 - 400 /CUMM) 101 L MPV (7.4 - 10.4 FL) 11.7 H Gran % (42.2 - 75.2 %) 82.7 H Lymphocytes % (20.5 - 51.1 %) 6.3 L Monocytes % (1.7 - 9.3 %) 9.1 Eosinophils % (0 - 5 %) 1.8 Basophils % (0.0 - 2.0 %) 0.1 Absolute Granulocytes (1.4 - 6.5 /CUMM) 6.6 H Absolute Lymphocytes (1.2 - 3.4 /CUMM) 0.5 L Absolute Monocytes (0.10 - 0.60 /CUMM) 0.7 H Absolute Eosinophils (0.0 - 0.7 /CUMM) 0.1 Absolute Basophils (0.0 - 0.2 /CUMM) 0 PUBS MCHC (33.0 - 37.0 G/DL) 32.8 L Diagnostic Data CXR Results FINDINGS: The lungs are expanded with no acute pneumonic process seen. However bibasilar process cannot be excluded. The heart size is enlarged with normal-appearing pulmonary vascularity. No gross bony abnormality seen. IMPRESSION: Hypoexpanded lungs with no acute pneumonic process seen. No major change from Assessment/Plan Assessment/Plan Assessment: 1. Worsening dyspnea and LE edema with history of HFpEF 2. HTN 3. History of prior pulmonary HTN 4. Left pleural effusion noted on echocardiogram and abdominal ultrasound 5. Renal insufficiency. 6. Mild normocytic anemia 7. Elevated TSH 8. HLD 9. History of CVA on warfarin with therapeutic INR REcommendations: - The patient does not appear to be in any overt left heart failure at the present time. His echo and abdominal ultrasound do show a left pleural effusion - Baseline non contrast CT chest to better assess the size of the effusion. - Gentle diuresis as outlined with very close monitoring of renal function pending further input from Nephrology. - I suspect that the LE edema is at least partly related to pulmonary HTN and venous insufficiency. Continue conservative measures ( sodium restriction, leg elevation and eventual support stockings) -The abdominal ultrasound showed no evidence of ascites. I would maintain warfarin and therapeutic INR unless CT chest suggests that the size of the effusion would necessitate thoracentesis. -Since the patient's BP has been stable, I would continue his regular medications for now. - Check full thyroid profile - Followup labs in AM - Further plans after the above. Consult Acknowledgment - Thank you for your consult request.
[2016-04-11] VITALS: BP 140/78
--- NOTE | 2016-04-11 07:22 | PN- Diabetes ---
Assessment/Plan Assessment: The patient feels improved. His pioglitazone has been stopped at the time of admission because of congestive heart failure. He has undergone is significant diuresis with improvement in his breathing. At the present time the patient is on low-dose insulin coverage before meals only. His fingerstick sugar this morning before breakfast is 111. Abdominal ultrasound shows no evidence of ascites. Plan: Suggest that instead of using regular insulin before meals we change his sliding scale to NovoLog before meals with a separate sliding-scale at bedtime using the present numbers. When the patient goes home he can be discharged on diet alone for management of his diabetes. He should check his sugars at least twice a day and if they become elevated he may need to go back on a small dose of NovoLog before each meal. Subjective Subjective: Feels improved Review of Systems Constitutional: Denies: chills, fever. Cardiovascular: Denies: chest pain. Respiratory: Denies: short of breath. Gastrointestinal: Denies: abdominal pain. Skin: Reports: no symptoms. Objective Last 24 Hrs of Vital Signs/I&O Vital Signs Date Time Temp Pulse Resp B/P Pulse O2 O2 Flow FiO2 Ox Delivery Rate 04/11 0000 Nasal 2.0L Cannula 04/11 0000 98.6 72 20 140/78 95 Nasal 2.0L Cannula 04/10 2157 92 Nasal 2.0L Cannula 04/10 1602 98.2 76 20 120/64 97 Nasal 2.0L Cannula 04/10 1600 98 Nasal 2.0L Cannula 04/10 1220 Nasal 2.0L Cannula 04/10 0839 70 122/58 04/10 0838 97.7 70 20 122/58 95 Nasal 2.0L Cannula 04/10 0800 Nasal 2.0L Cannula Intake & Output 04/11 0800 04/11 0000 04/10 1600 Intake Total 240 430 480 Output Total 650 690 500 Balance -410 -260 -20 Intake, IV 10 Intake, Oral 240 420 480 Output, Urine 650 690 500 Patient 226 lb Weight Vital Signs Date Time Temp Pulse Resp B/P Pulse O2 O2 Flow FiO2 Ox Delivery Rate 04/11 0000 Nasal 2.0L Cannula 04/11 0000 98.6 72 20 140/78 95 Nasal 2.0L Cannula 04/108 92 Nasal 2.0L Cannula 04/10 1602 98.2 76 20 120/64 97 Nasal 2.0L Cannula 04/10 1600 98 Nasal 2.0L Cannula 04/10 1220 Nasal 2.0L Cannula 04/10 0839 70 122/58 04/10 0838 97.7 70 20 122/58 95 Nasal 2.0L Cannula 04/10 0800 Nasal 2.0L Cannula Intake & Output 04/11 0800 04/11 0000 04/10 1600 Intake Total 240 430 480 Output Total 650 690 500 Balance -410 -260 -20 Intake, IV 10 Intake, Oral 240 420 480 Output, Urine 650 690 500 Patient 226 lb Weight Physical Exam General Appearance: alert, awake, comfortable Head: normal appearance Neck: normal inspection Respiratory: normal breath sounds Cardiovascular: regular rate/rhythm Abdomen: normal bowel sounds Extremities: swelling (mild) Current Medications: Current Medications Sig/Nidia Start time Last Medication Dose Route Stop Time Status Admin Acetaminophen 650 MG Q6P PRN 04/09 1545 AC PO Albuterol Sulfate 3 ML Q4P PRN 04/10 1215 AC 04/10 INH 1209 Amlodipine Besylate 10 MG QPM 04/09 2200 DC PO Atenolol 50 MG DAILY 04/10 1000 AC 04/10 PO 0839 Atorvastatin Calcium 20 MG 1700 04/09 1700 AC 04/10 PO 1723 Calcitriol 0.25 MCG DAILY 04/10 1000 AC 04/10 PO 0839 Furosemide 40 MG 0800 & 1700 04/10 1700 AC 04/10 IV 1723 Furosemide 20 MG 0800 & 1700 04/10 0800 DC 04/10 IV 0839 Insulin Human Regular 0 TIDAC/HS 04/09 1700 AC 04/10 SC 1723 Patient Medication 1 ED .STK-MED ONE 04/10 1345 DC Teaching ED 04/10 1346 Tamsulosin HCl 0.4 MG DAILY 04/10 1000 AC 04/10 PO 0839 Warfarin Sodium 2 MG COUMADIN 1700 ONE 04/10 1700 CAN PO 04/10 1701
--- NOTE | 2016-04-11 07:31 | PN- Housestaff ---
MELCHOR DOMINGUEZ,[facility] 04/11/16 0730: Subjective Follow-up For: Acute exacerbation of CHF Tele-Events Since Last Visit: Sinus bradycardia heart rate 50 to 70s, one episode of bradycardia and high 30s. Subjective: Patient seen and examined this morning. He was sitting comfortably in his recliner in no acute distress. Remains afebrile, other vitals within normal limits. He reports that he feels much better this morning, no shortness of breath, no palpitation, no chest pain, no dizziness, he remains on 2 L of nasal cannula oxygen setting and high 90s, will taper off oxygen if tolerated, and also get ambulatory sats. He has been tolerating by mouth intake well, otherwise no other complaints. Review of Systems Constitutional: Denies: chills, fever. Cardiovascular: Denies: chest pain, palpitations. Respiratory: Reports: see HPI, cough, short of breath. Denies: sputum production. Gastrointestinal: Denies: abdominal pain, nausea, vomiting. Genitourinary: Denies: dysuria, frequency. Objective Last 24 Hrs of Vital Signs/I&O Vital Signs Date Time Temp Pulse Resp B/P Pulse O2 O2 Flow FiO2 Ox Delivery Rate 04/11 0818 97 Nasal 1.0L Cannula 04/11 0000 Nasal 2.0L Cannula 04/11 0000 98.6 72 20 140/78 95 Nasal 2.0L Cannula 04/10 2158 92 Nasal 2.0L Cannula 04/10 1602 98.2 76 20 120/64 97 Nasal 2.0L Cannula 04/10 1600 98 Nasal 2.0L Cannula 04/10 1220 Nasal 2.0L Cannula 04/10 0839 70 122/58 04/10 0838 97.7 70 20 122/58 95 Nasal 2.0L Cannula Intake & Output 04/11 1600 04/11 0800 04/11 0000 Intake Total 120 430 Output Total 650 690 Balance -530 -260 Intake, IV 10 Intake, Oral 120 420 Output, Urine 650 690 Patient 102.569 kg Weight Physical Exam General Appearance: Alert, Oriented X3, Cooperative, No Acute Distress Cardiovascular: Regular Rate, Normal S1, Normal S2, No Murmurs Lungs: Clear to Auscultation, Normal Air Movement, left lower lung zone ronchi Abdomen: Normal Bowel Sounds, Soft, No Tenderness Extremities: No Clubbing, No Cyanosis, bilateral edema 2+ Current Medications: Current Medications Sig/Nidia Start time Last Medication Dose Route Stop Time Status Admin Acetaminophen 650 MG Q6P PRN 04/09 1545 AC PO Albuterol Sulfate 3 ML Q4P PRN 04/10 1215 AC 04/10 INH 1209 Amlodipine Besylate 10 MG QPM 04/09 2200 DC PO Atenolol 50 MG DAILY 04/10 1000 AC 04/10 PO 0839 Atorvastatin Calcium 20 MG 1700 04/09 1700 AC 04/10 PO 1723 Calcitriol 0.25 MCG DAILY 04/10 1000 AC 04/10 PO 0839 Furosemide 40 MG 0800 & 1700 04/10 1700 AC 04/11 IV 0803 Furosemide 20 MG 0800 & 1700 04/10 0800 DC 04/10 IV 0839 Insulin Human Regular 0 TIDAC/HS 04/09 1700 AC 04/11 SC 0802 Patient Medication 1 ED .STK-MED ONE 04/10 1345 DC Teaching ED 04/10 1346 Tamsulosin HCl 0.4 MG DAILY 04/10 1000 AC 04/10 PO 0839 Warfarin Sodium 2 MG ONCE ONE 04/11 0830 DC PO 04/11 0831 Warfarin Sodium 2 MG COUMADIN 1700 ONE 04/10 1700 CAN PO 04/10 1701 Last 24 Hrs of Lab/Aniket Results Last 24 Hrs of Labs/Mics: Laboratory Tests 04/11/16 0625: Sodium Pending, Potassium Pending, Chloride Pending, Carbon Dioxide Pending, Anion Gap Pending, BUN Pending, Creatinine Pending, BUN/Creatinine Ratio Pending , PT 26.3 H, INR 2.53 H, CBC w Diff Pending, WBC Pending, RBC Pending, Hgb Pending, Hct Pending, MCV Pending, MCH Pending, RDW Pending, Plt Count Pending, MPV Pending, PUBS MCHC Pending Assessment/Plan Assessment: This is a 85-year-old male with past medical history of hypertension, diabetes mellitus, hyperlipidemia, chronic kidney disease, stroke on Coumadin presented with progressive shortness breath. Whiteness upon presentation temperature 97.1 , pulse 65, respiratory rate 18, blood pressure 143/61, satting in high 90s on 2 L of nasal cannula oxygen. Pertinent labs H&H 10.8 and 33, platelets 101, creatinine 2.4, BUN 50, chest x- ray did not show any acute cardiopulmonary findings., Upon arrival he was in moderate respiratory distress with ambulation (satting around 85% )he received 60mg of IV Lasix and supplemental oxygen after which he reported improvement in his symptoms. We are currently monitoring him for the following conditions: Acute hypoxic respiratory failure secondary to CHF exacerbation: Supplemental oxygen as needed to keep oxygen saturation above 90%. TRC/nebs as needed . BNP 5160 IV Lasix increased to 40 mg(secondary to worsening kidney function) twice a day with strict monitoring of I's and O's and daily weights. (Total intake 120 and total output 650 with a negative fluid balance of 530 in past 24 hours) There was suspicion off abdominal ascites, which abdominal ultrasound has ruled out. Cardiology consult appreciated, will f/u recs. Rule out ACS: Continuous cardiac monitoring for any arrhythmias Troponins and EKG negative for any acute findings. VIPUL on chronic kidney disease: Likely secondary to dehydration secondary to poor oral intake, creatinine 2.4 from . Avoid nephrotoxic drugs, lisinopril on hold, repeat BP in a.m. Nephrology consultation pending, we'll follow-up with recommendations Anemia : H&H low but stable, no active bleeding, will monitor repeat labs History of diabetes mellitus: Insulin sliding scale with frequent fingerstick glucose monitoring Diabetic diet Actos on hold as known to precipitate CHF. Endocrinology following, will follow recommendations. History of hyperlipidemia: Continue home dose of atorvastatin 20 mg daily History of hypertension: We'll continue home dose of amlodipine 10 mg daily along with blood pressure monitoring every shift. History of stroke: Patient has been on Coumadin ever since stroke in 1994. He takes him a gram of Coumadin on Thursday to Thursday, will get INR and dose Coumadin accordingly Diet : Diabetic DVT prophylaxis with Coumadin Patient is full code Problem List: 1. Congestive heart failure 2. VIPUL (acute kidney injury) Pain Ratin Pain Location: None Pain Goal: Remain pain free Pain Plan: Mild pain pathway Tomorrow's Labs & Rationales: BEP for lites monitoring and setting of CHF INR for Coumadin dosing. RADHA KIM MD 04/11/16 5198: Attending Review Statement Attending Statement Attending Statement: examined this patient, discuss w/resident/PA/COVERAGE SPECIALIST RN, agreed w/resident/PA/COVERAGE SPECIALIST RN, reviewed EMR data (avail), discussed with nursing, discussed with case mgmt, reviewed images, amended to note Attending Assessment/Plan: The patient was seen and discussed with house staff and cardiology. Pulmonary consult requested (?atypical pneumonia).
[2016-04-11 08:00] VITALS: BP 140/70
[2016-04-11 08:21] LABS: PT 26.3 SEC (9.4-12.5)
[2016-04-11 08:27] LABS: ABSOLUTE BASOPHIL COUNT 0 /CUMM (0.0-0.2); ABSOLUTE EOSINOPHIL COUNT 0.2 /CUMM (0.0-0.7); ABSOLUTE GRANULOCYTE CT 5.1 /CUMM (1.4-6.5); ABSOLUTE LYMPH COUNT 0.7 /CUMM (1.2-3.4); ABSOLUTE MONOCYTE COUNT 0.7 /CUMM (0.10-0.60); BASOPHIL % 0.6 % (0.0-2.0); GRANULOCYTE % 76.2 % (42.2-75.2); HEMATOCRIT 33.8 % (42-52); MEAN CORPUSCULAR HGB 30.8 PG (27.0-31.0); MEAN CORPUSCULAR HGB CONC 33.2 G/DL (33.0-37.0); MEAN CORPUSCULAR VOLUME 92.7 FL (80.0-94.0); MEAN PLATELET VOLUME 12.4 FL (7.4-10.4); RBC DISTRIBUTION WIDTH 15.8 % (11.5-14.5); RED BLOOD CELL CT 3.64 /CUMM (4.70-6.10); WHITE BLOOD CELL COUNT 6.7 /CUMM (4.8-10.8)
--- NOTE | 2016-04-11 08:31 | Patient Discharge Instructions ---
Discharge Instructions General Discharge Information You were seen/treated for: Acute on chronic HFpEF Acute kidney injury on chronic kidney disease Hypertension hyperlipidemia Special Instructions: Please follow-up with private care physician, licensed mental health counselor, acting instructor in 1 week after discharge. Please repeat BEP in one week, talk tp your primary care physician about it. Lisinopril dose has been decreased, discuss with your primary care physician and based on kidney function to increase dose safely. Also talked to acting instructor about the CT findings, a repeat CT chest might be needed, please discuss with your primary care physician. Atenolol has been discontinued, your heart rate was going in 30s at night. Discuss with your licensed mental health counselor for outpatient Holter monitor. CT chest showed:Abnormal adenopathy in the mediastinum, particularly in the right lower azygoesophageal recess. Findings seem a little out of proportion to the degree of lung parenchymal opacification. Discussed these findings with your primary care physician. Diet Continue normal diet: Yes Recommended Diet: Diabetic Activity Activity Self Limited: Yes Acute Coronary Syndrome Inclusion Criteria At DC or during hospital stay patient has or had the following: ACS DIAGNOSIS No Discharge Core Measures Meds if any: Prescribed or Continued at Discharge Meds if any: NOT Prescribed or Continued at Discharge Congestive Heart Failure Inclusion Criteria At DC or during hospital stay patient has or had the following: CHF DIAGNOSIS No Discharge Core Measures Meds if any: Prescribed or Continued at Discharge Meds if any: NOT Prescribed or Continued at Discharge Cerebrovascular accident Inclusion Criteria At DC or during hospital stay patient has or had the following: CVA/TIA Diagnosis No Discharge Core Measures Meds if any: Prescribed or Continued at Discharge Meds if any: NOT Prescribed or Continued at Discharge Venous thromboembolism Inclusion Criteria VTE Diagnosis No VTE Type NONE VTE Confirmed by (Test) NONE Discharge Core Measures - Per Current guidelines, there needs to be overlap - treatment for the first 5 days of Warfarin therapy. - If discharged on Warfarin prior to 5 days of - overlap therapy, the patient will need to be - assessed for post discharge needs including - *Post discharge parental anticoagulation - *Warfarin and/or parental anticoagulation education - *Follow up date to check INR post discharge At least 5 days overlap therapy as Inpatient No Meds if any: Prescribed or Continued at Discharge Note: Overlap Therapy is Warfarin and Anticoagulant Meds if any: NOT Prescribed or Continued at Discharge
[2016-04-11 09:31] LABS: PLATELET COUNT 113 /CUMM (130-400)
--- NOTE | 2016-04-11 12:41 | PN- Cardiology ---
Subjective Subjective: Clinically, the patient appears to be doing much better. No new cardiac symptoms. Objective Vital Signs and I&Os Vital Signs Date Time Temp Pulse Resp B/P Pulse O2 O2 Flow FiO2 Ox Delivery Rate 04/11 1117 97 Nasal 2.0L Cannula 04/11 1055 94 Nasal 2.0L Cannula 04/11 1008 59 140/70 04/11 1007 59 140/70 04/11 0818 97 Nasal 1.0L Cannula 04/11 0800 97.8 59 20 140/70 93 Nasal 1.0L Cannula 04/11 0000 Nasal 2.0L Cannula 04/11 0000 98.6 72 20 140/78 95 Nasal 2.0L Cannula 04/10 2158 92 Nasal 2.0L Cannula 04/10 1602 98.2 76 20 120/64 97 Nasal 2.0L Cannula 04/10 1600 98 Nasal 2.0L Cannula Intake & Output 04/11 1600 04/11 0800 04/11 0000 04/10 1600 04/10 0800 04/10 0000 Intake Total 120 120 430 480 100 Output Total 650 690 500 250 500 Balance 120 -530 -260 -20 -150 -500 Intake, IV 10 Intake, Oral 120 120 420 480 100 Output, Urine 650 690 500 250 500 Patient 226 lb 231 lb 228 lb Weight Physical Exam: General: WD, WN, WM in NAD with VSS HEENT: normal Neck: JVP normal, Carotids normal bilaterally. Chest: scattered rhoncho Heart: S1, S2, 1-2 / 6 systolic murmur Abdomen: Normal Ext: LE edema PV: normal bilaterally Current Medications: Current Medications Sig/Nidia Start time Last Medication Dose Route Stop Time Status Admin Acetaminophen 650 MG Q6P PRN 04/09 1545 AC PO Albuterol Sulfate 3 ML Q4P PRN 04/10 1215 AC 04/10 INH 1209 Amlodipine Besylate 5 MG DAILY 04/11 1000 AC 04/11 PO 1008 Amlodipine Besylate 10 MG QPM 04/09 2200 DC PO Atenolol 50 MG DAILY 04/10 1000 AC 04/11 PO 1008 Atorvastatin Calcium 20 MG 1700 04/09 1700 AC 04/10 PO 1723 Calcitriol 0.25 MCG DAILY 04/10 1000 AC 04/11 PO 1008 Furosemide 40 MG 0800 & 1700 04/10 1700 AC 04/11 IV 0803 Furosemide 20 MG 0800 & 1700 04/10 0800 DC 04/10 IV 0839 Insulin Human Regular 0 TIDAC/HS 04/09 1700 AC 04/11 SC 1228 Patient Medication 1 ED .STK-MED ONE 04/10 1345 DC Teaching ED 04/10 1346 Tamsulosin HCl 0.4 MG DAILY 04/10 1000 AC 04/11 PO 1007 Warfarin Sodium 2 MG ONCE ONE 04/11 0830 DC PO 04/11 0831 Warfarin Sodium 2 MG COUMADIN 1700 ONE 04/10 1700 CAN PO 04/10 1701 Results Last 48 Hrs of Labs/Mics: Laboratory Tests 04/11/16 0625: Anion Gap 11, Estimated GFR 26 L, BUN/Creatinine Ratio 19.6, PT 26.3 H, INR 2.53 H, CBC w Diff NO MAN DIFF REQ, RBC 3.64 L, MCV 92.7, MCH 30.8, RDW 15.8 H, MPV 12.4 H, Gran % 76.2 H, Lymphocytes % 9.9 L, Monocytes % 10.3 H, Eosinophils % 3.0, Basophils % 0.6, Absolute Granulocytes 5.1, Absolute Lymphocytes 0.7 L, Absolute Monocytes 0.7 H, Absolute Eosinophils 0.2, Absolute Basophils 0, PUBS MCHC 33.2 04/10/16 0630: Anion Gap 9, Estimated GFR 25 L, BUN/Creatinine Ratio 18.8, Triglycerides 86, Cholesterol 99, LDL Cholesterol, Calc 41 L, HDL Cholesterol 41, Cholesterol/HDL Ratio 2, TSH 6.240 H, Free T4 1.20, Total T3 1.04, PT 27.3 H, INR 2.62 H 04/09/16 1959: Urine Color YEL, Urine Clarity CLEAR, Urine pH 6.0, Ur Specific [place] 1.015, Urine Protein TRACE H, Urine Ketones NEG, Urine Nitrite NEG, Urine Bilirubin NEG, Urine Urobilinogen 0.2, Ur Leukocyte Esterase NEG, Ur Microscopic SEDIMENT EXAMINED, Urine RBC RARE, Ur Epithelial Cells RARE, Urine Hemoglobin TRACE-LYSED H, Urine Glucose NEG 04/09/16 1730: Troponin I 0.03 Assessment/Plan Assessment/Plan Assessment: 1. Worsening dyspnea and LE edema with history of HFpEF 2. HTN 3. History of prior pulmonary HTN 4. Left pleural effusion noted on echocardiogram and abdominal ultrasound 5. Renal insufficiency. 6. Mild normocytic anemia 7. Elevated TSH 8. HLD 9. 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 -Noncontrast chest CT pending today to better assess size of left pleural effusion -Assuming that the pleural effusion does not need to be, I would consider transitioning the patient to oral Lasix and consider discharge in the near future. -Consider outpatient follow-up in the congestive heart failure clinic -The patient will need to follow-up closely with Aldo Romero MD post discharge. -Discussed with the patient. Continue telemetry? Yes
--- NOTE | 2016-04-11 13:57 | Cons- Nephrology ---
General Information and HPI Consulting Request Date of Consult: 04/11/16 Requested By: RADHA KIM MD Reason for Consult: History of possible chronic kidney disease Source of Information: patient, old records Exam Limitations: no limitations History of Present Illness: The patient is an 85-year-old gentleman who has a history of chronic kidney disease going back 5 or 6 years. He is been followed previously at the nephrology clinic at the [place]. He has no history of kidney stones or kidney infections. He has a previous history of a CVA in 1994. The only residual from that she suffers, is a difficulty with balance. He says he no longer can repair his roof. As noted, he is been aware of kidney disease for the last 5 or 6 years. He tells me he was hospitalized here with congestive heart failure in December of this past year. He did see Marline Woodward as an outpatient when he was transferring his care. He is not aware of any proteinuria or hematuria. He reports a history of macular degeneration but also reports a history of retinal hemorrhaging requiring shots. Denies any dysuria, but does complain of nocturia admitted. Allergies/Medications Allergies: Coded Allergies: NO KNOWN ALLERGIES (01/04/16) Home Med List: Amlodipine Besylate 10 MG TABLET 1 TAB PO QPM HEART (Reported) Atenolol 50 MG TABLET 1 TAB PO DAILY HEART (Reported) Calcitriol 0.25 MCG CAPSULE 1 CAP PO DAILY SUPPLEMENT (Reported) Ergocalciferol (Vitamin D2) (Drisdol) 50,000 UNIT CAPSULE 1 CAP PO Q 2 WEEKS SUPPLEMENT (Reported) Furosemide 40 MG TABLET 1 TAB PO DAILY WATER PILL (Reported) Lisinopril 40 MG TABLET 1 TAB PO DAILY HTN (Reported) Pioglitazone HCl (Actos) 15 MG TABLET 1 TAB PO QPM DIABETES (Reported) Saxagliptin HCl (Onglyza) 2.5 MG TABLET 1 TAB PO QPM DIABETES (Reported) Simvastatin (Zocor*) 20 MG TABLET 1 TAB PO QPM CHOLESTEROL (Reported) Terazosin HCl 10 MG CAPSULE 10 CAP PO QPM BPH (Reported) Warfarin Sodium (Coumadin) 2 MG TABLET 1 TAB PO AD BLOOD THINNER (Reported) Current Medications: Current Medications Sig/Nidia Start time Last Medication Dose Route Stop Time Status Admin Acetaminophen 650 MG Q6P PRN 04/09 1545 AC PO Albuterol Sulfate 3 ML Q4P PRN 04/10 1215 AC 04/10 INH 1209 Amlodipine Besylate 5 MG DAILY 04/11 1000 AC 04/11 PO 1008 Amlodipine Besylate 10 MG QPM 04/09 2200 DC PO Atenolol 50 MG DAILY 04/10 1000 AC 04/11 PO 1008 Atorvastatin Calcium 20 MG 1700 04/09 1700 AC 04/10 PO 1723 Calcitriol 0.25 MCG DAILY 04/10 1000 AC 04/11 PO 1008 Furosemide 40 MG 0800 & 1700 04/10 1700 AC 04/11 IV 0803 Furosemide 20 MG 0800 & 17004/10 0800 DC 04/10 IV 0839 Insulin Human Regular 0 TIDAC/HS 04/09 1700 AC 04/11 SC 1228 Tamsulosin HCl 0.4 MG DAILY 04/10 1000 AC 04/11 PO 1007 Warfarin Sodium 2 MG ONCE ONE 04/11 0830 DC PO 04/11 0831 Warfarin Sodium 2 MG COUMADIN 1700 ONE 04/10 1700 CAN PO 04/10 1701 Review of Systems Review of Systems Constitutional: Denies: chills, diaphoresis, fever, malaise, weakness. EENTM: Reports: blurred vision, visual changes. Denies: double vision, epistaxis, nasal pain, throat pain. Cardiovascular: Reports: see HPI, edema, orthopena, peripheral edema. Denies: chest pain, palpitations, syncope. Respiratory: Reports: short of breath, sputum production. Denies: cough, hemoptysis, orthopnea, stridor. GI: Denies: abdominal pain, bloating, constipation, diarrhea, distention, bowel incontinence, bloody stool, changes in stool, vomiting. Genitourinary: Reports: frequency, nocturia. Denies: discharge, dysuria, hematuria, hesitation , pain, urgency. Musculoskeletal: Denies: back pain, joint pain, joint swelling, muscle pain. Skin: Denies: dryness, rash. Neurological/Psychological: Reports: pre-existing deficit. Denies: headache, tonic-clonic seizures. Hematologic/Endocrine: Reports: bruising. Denies: bleeding, polyuria, polydipsia. 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 FH: esophageal cancer FATHER Cardiac disorder in father Relation not specified for: *No pertinent family history Psychosocial History Where Do You Live? Home Who Do You Live With? spouse Services at Home: Nursing, None Primary Language: Kazakh Smoking Status: Never Smoked ETOH Use: two drinks per day Illicit Drug Use: denies illicit drug use Other Social History: One child in an accidental Functional Ability ADLs Independent: dressing, eating, toileting, bathing. Ambulation: independent IADLs Independent: shopping, housework, finances, food prep, telephone, transportation , medication admin. ECHO Results (as available) Date of last Echo 04/10/16 EF% 60 Exam & Diagnostic Data Vital Signs and I&O Vital Signs Date Time Temp Pulse Resp B/P Pulse O2 O2 Flow FiO2 Ox Delivery Rate 04/11 1117 97 Nasal 2.0L Cannula 04/11 1055 94 Nasal 2.0L Cannula 04/11 1008 59 140/70 04/11 1007 59 140/70 04/11 0818 97 Nasal 1.0L Cannula 04/11 0800 97.8 59 20 140/70 93 Nasal 1.0L Cannula 04/11 0000 Nasal 2.0L Cannula 04/11 0000 98.6 72 20 140/78 95 Nasal 2.0L Cannula 04/10 2158 92 Nasal 2.0L Cannula 04/10 1602 98.2 76 20 120/64 97 Nasal 2.0L Cannula 04/10 1600 98 Nasal 2.0L Cannula Intake & Output 04/11 1600 04/11 0400 04/10 1600 04/10 0400 04/09 1600 04/09 0400 Intake Total 240 430 580 10 Output Total 650 690 750 500 350 Balance -410 -260 -170 -500 -340 Intake, IV 10 10 Intake, Oral 240 420 580 Output, Urine 650 690 750 500 350 Patient 226 lb 231 lb 228 lb 225 lb Weight Physical Exam General Appearance: well developed/nourished, no apparent distress, alert, awake Head: atraumatic, normal appearance Eyes: Bilateral: PERRL, EOMI. Ears, Nose, Throat: normal pharynx, normal ENT inspection, hearing grossly normal Respiratory: chest non-tender, no respiratory distress, rales (both bases) Cardiovascular: regular rate/rhythm, edema, normal peripheral pulses, no abdominal bruits Peripheral Pulses: 3+ tibialis posterior (R), 3+ tibialis posterior (L), 3+ dorsalis pedis (R), 3+ dorsalis pedis (L) Gastrointestinal: normal bowel sounds, soft, non-tender, no organomegaly, distention (hard to discern if this is sim), well healed umbilical hernia scar Back: normal inspection, no CVA tenderness Extremities: pedal edema, also pretibial edema Neurologic/Psych: no motor/sensory deficits, awake, alert, oriented x 3, normal mood/affect Results Pertinent Lab Results: Laboratory Tests 04/11 04/10 0625 0630 Chemistry Sodium (137 - 145 mmol/L) 146 H 144 Potassium (3.5 - 5.1 mmol/L) 4.3 4.5 Chloride (98 - 107 mmol/L) 107 111 H Carbon Dioxide (22 - 30 mmol/L) 28 24 Anion Gap (5 - 16) 11 9 BUN (9 - 20 mg/dL) 47 H 47 H Creatinine (0.7 - 1.2 mg/dL) 2.4 H 2.5 H Estimated GFR (>60 ml/min) 26 L 25 L BUN/Creatinine Ratio (7 - 25 %) 19.6 18.8 Triglycerides (<150 mg/dL) 86 Cholesterol (< 200 MG/DL) 99 LDL Cholesterol, Calc (65 - 129 mg/dL) 41 L HDL Cholesterol (40 - 60 mg/dL) 41 Cholesterol/HDL Ratio (0.00 - 4.88 %) 2 TSH (0.270 - 4.200 uIU/mL) 6.240 H Free T4 (0.85 - 1.93 ng/dL) 1.20 Total T3 (0.97 - 1.69 ng/mL) 1.04 Coagulation PT (9.4 - 12.5 SEC) 26.3 H 27.3 H INR (0.90 - 1.17) 2.53 H 2.62 H Hematology CBC w Diff NO MAN DIFF REQ WBC (4.8 - 10.8 /CUMM) 6.7 RBC (4.70 - 6.10 /CUMM) 3.64 L Hgb (14.0 - 18.0 G/DL) 11.2 L Hct (42 - 52 %) 33.8 L MCV (80.0 - 94.0 FL) 92.7 MCH (27.0 - 31.0 PG) 30.8 RDW (11.5 - 14.5 %) 15.8 H Plt Count (130 - 400 /CUMM) 113 L MPV (7.4 - 10.4 FL) 12.4 H Gran % (42.2 - 75.2 %) 76.2 H Lymphocytes % (20.5 - 51.1 %) 9.9 L Monocytes % (1.7 - 9.3 %) 10.3 H Eosinophils % (0 - 5 %) 3.0 Basophils % (0.0 - 2.0 %) 0.6 Absolute Granulocytes (1.4 - 6.5 /CUMM) 5.1 Absolute Lymphocytes (1.2 - 3.4 /CUMM) 0.7 L Absolute Monocytes (0.10 - 0.60 /CUMM) 0.7 H Absolute Eosinophils (0.0 - 0.7 /CUMM) 0.2 Absolute Basophils (0.0 - 0.2 /CUMM) 0 PUBS MCHC (33.0 - 37.0 G/DL) 33.2 04/09 04/09 1959 1730 Chemistry Troponin I (<0.11 ng/ml) 0.03 Urines Urine Color (YEL,AMB,STR) YEL Urine Clarity (CLEAR) CLEAR Urine pH (5.0 - 8.0) 6.0 Ur Specific [place] (1.001 - 1.035) 1.015 Urine Protein (NEG,<30 MG/DL) TRACE H Urine Ketones (NEG) NEG Urine Nitrite (NEG) NEG Urine Bilirubin (NEG) NEG Urine Urobilinogen (0.1 - 1.0 EU/dl) 0.2 Ur Leukocyte Esterase (NEG) NEG Ur Microscopic SEDIMENT EXAMINED Urine RBC (0 - 5 /HPF) RARE Ur Epithelial Cells (NONE,FEW) RARE Urine Hemoglobin (NEG) TRACE-LYSED H Urine Glucose (N MG/DL) NEG 04/09 1142 Chemistry Sodium (137 - 145 mmol/L) 145 Potassium (3.5 - 5.1 mmol/L) 4.8 Chloride (98 - 107 mmol/L) 111 H Carbon Dioxide (22 - 30 mmol/L) 21 L Anion Gap (5 - 16) 12 BUN (9 - 20 mg/dL) 50 H Creatinine (0.7 - 1.2 mg/dL) 2.4 H Estimated GFR (>60 ml/min) 26 L BUN/Creatinine Ratio (7 - 25 %) 20.8 Glucose (65 - 99 mg/dL) 188 H Calcium (8.4 - 10.2 mg/dL) 8.7 Magnesium (1.6 - 2.3 mg/dL) 2.2 Total Bilirubin (0.2 - 1.3 mg/dL) 0.6 AST (17 - 59 U/L) 22 ALT (21 - 72 U/L) 19 L Alkaline Phosphatase (< 127 U/L) 72 Troponin I (<0.11 ng/ml) 0.02 Hll-H-Eouyjneriju Pept (<125 pg/mL) 5160 H Total Protein (6.3 - 8.2 g/dL) 6.6 Albumin (3.5 - 5.0 g/dL) 3.7 Globulin (1.9 - 4.2 gm/dL) 2.9 Albumin/Globulin Ratio (1.1 - 2.2 %) 1.3 Coagulation PT (9.4 - 12.5 SEC) 22.9 H INR (0.90 - 1.17) 2.20 H Hematology CBC w Diff NO MAN DIFF REQ WBC (4.8 - 10.8 /CUMM) 8.0 RBC (4.70 - 6.10 /CUMM) 3.55 L Hgb (14.0 - 18.0 G/DL) 10.8 L Hct (42 - 52 %) 33.0 L MCV (80.0 - 94.0 FL) 93.1 MCH (27.0 - 31.0 PG) 30.5 RDW (11.5 - 14.5 %) 15.8 H Plt Count (130 - 400 /CUMM) 101 L MPV (7.4 - 10.4 FL) 11.7 H Gran % (42.2 - 75.2 %) 82.7 H Lymphocytes % (20.5 - 51.1 %) 6.3 L Monocytes % (1.7 - 9.3 %) 9.1 Eosinophils % (0 - 5 %) 1.8 Basophils % (0.0 - 2.0 %) 0.1 Absolute Granulocytes (1.4 - 6.5 /CUMM) 6.6 H Absolute Lymphocytes (1.2 - 3.4 /CUMM) 0.5 L Absolute Monocytes (0.10 - 0.60 /CUMM) 0.7 H Absolute Eosinophils (0.0 - 0.7 /CUMM) 0.1 Absolute Basophils (0.0 - 0.2 /CUMM) 0 PUBS MCHC (33.0 - 37.0 G/DL) 32.8 L Assessment/Plan Assessment/Recommendations Assessment: 1. Kidney disease. This appears to be chronic. It may well be related to diabetic nephropathy. 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 He also speaks of his right eye having more trouble recently. In addition, he only had trace protein on his urinalysis. A 24-hour urine is some progress. I see from the orders this is for total protein. Please add a total creatinine to this. The reason a total creatinine is measured is not simply too calculated creatinine clearance, but to assess the adequacy of the collection. It would be expected that a man should produce 20-25 mg/kg of body weight per day creatinine. A woman should produce 15-20 mg of creatinine per kilogram body weight per day. The caveat on this in this gentleman is the fact that he is 85 years of age. These values may not be applicable to an elderly man. In addition, while collecting this, it may be helpful to order a urine protein electrophoresis. It may be helpful to get a renal ultrasound. He had an abdominal ultrasound to assess for ascites, but no mention is made of the kidneys or other viscera. His slight rise in creatinine over the past few years may represent progression of hypertensive nephrosclerosis or early diabetic nephropathy but could also represent bladder outlet obstruction. An ultrasound may clarify if that is playing a role. 2. Congestive heart failure. This may simply reflect diastolic dysfunction. Recommendations: 1. Please include a 24-hour urine total creatinine on the 24-hour urine for total protein area 2. Strict I's and O's daily weights 3. May need to consider a serum immunoelectrophoresis, although, if he is had renal failure for 5 or 6 years, the likelihood that he has myeloma as a cause of this is not high.
--- NOTE | 2016-04-11 15:01 | CT SCAN REPORT ---
EXAMINATION: CT CHEST WITHOUT CONTRAST CLINICAL INFORMATION: Left pleural effusion. Presumptive diagnosis of CHF. COMPARISON: Chest x-ray dated 04/09/2016, 01/07/2016, 01/04/2016. TECHNIQUE: Multidetector volumetric CT imaging of the chest was obtained noncontrast. Sagittal and coronal reformations were obtained. DLP: 619.19 mGy-cm. FINDINGS: LUNGS: Small bilateral simple-appearing posteriorly layering pleural effusions are seen without pleural thickening, pleural nodularity, or complexity of the fluid seen. Subjacent dependent atelectasis is seen in both lower lobes. There are multifocal patchy areas of airway associated ground-glass opacities seen in the left upper lobe, left lower lobe, right lower lobe, and a few in the right upper lobe, suggestive of airway-associated viral or atypical infection. There are multiple bilateral scattered 0.2 to 0.3 cm calcified and noncalcified pulmonary nodules. No suspicious focal lung nodule or mass. No pneumothorax. No evidence of pulmonary edema. Central airways patent. VASCULAR STRUCTURES: Aortic and heart size normal. Trace pericardial fluid. Mild aortic valvular calcifications and severe atherosclerotic calcifications of the left main coronary artery, left anterior descending and circumflex coronary artery and obtuse marginal coronary arteries. LYMPHATIC STRUCTURES: There are several mediastinal lymph nodes seen, the largest of which is in the right lower azygoesophageal recess region, measuring 4.2 x 2.0 x 2.4 cm (series 601, image 77; series 602, image 67). The right upper paratracheal lymph node measures 1.4 cm in short axis but has a normal fatty hilum. Other subcentimeter-sized mediastinal lymph nodes are seen, measuring just under 1 cm in short axis. No hilar or axillary adenopathy. THYROID GLAND: Unremarkable to the extent included. UPPER ABDOMEN: There is a tiny 0.4 cm calcification seen adherent to the anterior gallbladder wall (series 2, image 55), possibly a small adherent calcified gallstone versus focal gallbladder wall calcification. Gallbladder is only partially distended but otherwise grossly unremarkable. No intrahepatic or extrahepatic ductal dilatation seen. Bilateral renal cortical thinning is seen. Mild diffuse atrophy of the pancreas is noted. Spleen appears enlarged, measuring 16 cm anteroposteriorly. Included portion of liver unremarkable. BONES: Mild vertebral spondylosis seen in the mid and lower thoracic spine. No suspicious focal findings. IMPRESSION: 1. No evidence of pulmonary edema. 2. Multifocal bilateral airway-associated patchy ground-glass opacities are seen. There are also bilateral small simple-appearing pleural effusions. Findings may be reflective of viral or atypical pneumonitis. Close clinical correlation is requested. 3. Abnormal adenopathy in the mediastinum, particularly in the right lower azygoesophageal recess. Findings seem a little out of proportion to the degree of lung parenchymal opacification. Close clinical correlation and follow-up evaluation is recommended post treatment to document resolution of findings. 4. Splenomegaly. 5. Bilateral renal cortical thinning. 6. Tiny calcified gallstone versus focal calcification within the gallbladder wall.
[2016-04-11 18:22] VITALS: BP 138/60
[2016-04-11 23:02] VITALS: BP 140/62
[2016-04-12 07:30] VITALS: BP 150/60
--- NOTE | 2016-04-12 07:48 | PN- Housestaff ---
MELCHOR DOMINGUEZ,[facility] 04/12/16 0747: Subjective Follow-up For: Acute exacerbation of CHF Subjective: Agents and examined this morning. He was sitting comfortably in his recliner in no acute distress eating his breakfast. Shortness of breath has improved markedly, so has the leg edema. He had no complete this morning. Review of Systems Constitutional: Reports: see HPI. Objective Last 24 Hrs of Vital Signs/I&O Vital Signs Date Time Temp Pulse Resp B/P Pulse O2 O2 Flow FiO2 Ox Delivery Rate 04/12 0950 94 Room Air 04/12 0847 150/60 04/12 0847 150/60 04/12 0730 97.7 56 20 150/60 96 Nasal 1.0L Cannula 04/12 0000 Nasal 1.0L Cannula 04/11 2302 97.4 63 18 140/62 94 Nasal Cannula 04/11 2222 93 Nasal 1.0L Cannula 04/11 1822 97.8 68 18 138/60 94 04/11 1600 98 Nasal 1.0L Cannula 04/11 1117 97 Nasal 2.0L Cannula 04/11 1055 94 Nasal 2.0L Cannula Intake & Output 04/12 1600 04/12 0800 04/12 0000 Intake Total 630 Output Total 590 Balance 40 Intake, IV 280 Intake, Oral 350 Output, Urine 590 Patient 100.698 kg Weight Physical Exam General Appearance: Alert, Oriented X3, Cooperative Cardiovascular: Regular Rate, Normal S1, Normal S2, No Murmurs Lungs: Clear to Auscultation, Normal Air Movement Abdomen: Normal Bowel Sounds, Soft, No Tenderness Extremities: No Clubbing, No Cyanosis, No Edema Current Medications: Current Medications Sig/Nidia Start time Last Medication Dose Route Stop Time Status Admin Acetaminophen 650 MG Q6P PRN 04/09 1545 AC PO Albuterol Sulfate 3 ML Q4P PRN 04/10 1215 AC 04/10 INH 1209 Amlodipine Besylate 5 MG DAILY 04/11 1000 AC 04/12 PO 0847 Atenolol 50 MG DAILY 04/10 1000 AC 04/12 PO 0846 Atorvastatin Calcium 20 [place] [address]004/09 1700 AC 04/11 PO 1636 Azithromycin 500 MG DAILY@1700 04/11 1700 AC 04/11 Dextrose/Water 250 ML IV 1735 Calcitriol 0.25 MCG DAILY 04/10 1000 AC 04/12 PO 0846 Furosemide 40 MG 0800 & 17004/10 1700 AC 04/12 IV 0846 Insulin Human Regular 0 TIDAC/HS 04/09 1700 AC 04/12 SC 0848 Tamsulosin HCl 0.4 MG DAILY 04/10 1000 AC 04/12 PO 0847 Last 24 Hrs of Lab/Aniket Results Last 24 Hrs of Labs/Mics: Laboratory Tests 04/12/16 0625: PT 25.9 H, INR 2.49 H, CBC w Diff NO MAN DIFF REQ, RBC 3.40 L, MCV 91.6, MCH 31.0, RDW 15.2 H, MPV 11.6 H, Gran % 75.6 H, Lymphocytes % 9.0 L, Monocytes % 11.7 H, Eosinophils % 3.0, Basophils % 0.7, Absolute Granulocytes 4.5, Absolute Lymphocytes 0.5 L, Absolute Monocytes 0.7 H, Absolute Eosinophils 0.2 , Absolute Basophils 0, PUBS MCHC 33.9 Assessment/Plan Assessment: This is a 85-year-old male with past medical history of hypertension, diabetes mellitus, hyperlipidemia, chronic kidney disease, stroke on Coumadin presented with progressive shortness breath. Whiteness upon presentation temperature 97.1 , pulse 65, respiratory rate 18, blood pressure 143/61, satting in high 90s on 2 L of nasal cannula oxygen. Pertinent labs H&H 10.8 and 33, platelets 101, creatinine 2.4, BUN 50, chest x- ray did not show any acute cardiopulmonary findings., Upon arrival he was in moderate respiratory distress with ambulation (satting around 85% )he received 60mg of IV Lasix and supplemental oxygen after which he reported improvement in his symptoms. We are currently monitoring him for the following conditions: Acute hypoxic respiratory failure secondary to CHF exacerbation: Supplemental oxygen as needed to keep oxygen saturation above 90%. TRC/nebs as needed . BNP 5160 IV Lasix increased to 40 mg twice a day with strict monitoring of I's and O's and daily weights. CT chest had shown evidence of left sided pleural effusion and evidence of Abnormal adenopathy in the mediastinum, particularly in the right lower, pulmonology has recommended that patient will need repeat CT chest after he is you while in it. An outpatient evaluation of pathologic adenopathy seen on CT chest. Patient will be advised to follow-up with primary care physician upon discharge Cardiology consult appreciated, will f/u recs. Rule out ACS: Continuous cardiac monitoring for any arrhythmias Troponins and EKG negative for any acute findings. VIPUL on chronic kidney disease: Likely secondary to dehydration secondary to poor oral intake, creatinine 2.4 from . Avoid nephrotoxic drugs, lisinopril on hold, repeat BP in a.m. Nephrology consultation pending, we'll follow-up with recommendations Anemia : H&H low but stable, no active bleeding, will monitor repeat labs History of diabetes mellitus: Insulin sliding scale with frequent fingerstick glucose monitoring Diabetic diet Actos on hold as known to precipitate CHF. Endocrinology following, will follow recommendations. History of hyperlipidemia: Continue home dose of atorvastatin 20 mg daily History of hypertension: We'll continue home dose of amlodipine 10 mg daily along with blood pressure monitoring every shift. History of stroke: Patient has been on Coumadin ever since stroke in 1994. He takes him a gram of Coumadin on Thursday to Thursday, will get INR and dose Coumadin accordingly Diet : Diabetic DVT prophylaxis with Coumadin Patient is full code Problem List: 1. CHF exacerbation Pain Ratin Pain Location: none Pain Goal: Remain pain free Pain Plan: Mild pain pathway Tomorrow's Labs & Rationales: BEP for lites monitoring BELL DOMINGUEZ,[facility] 04/12/16 1351: Attending MD Review Statement Attending Statement Attending MD Statement: examined this patient, discuss w/resident/PA/COMPOSITION STONE APPLICATOR, agreed w/resident/PA/COMPOSITION STONE APPLICATOR, discussed with family, reviewed EMR data (avail), discussed with nursing, discussed with case mgmt, reviewed images, amended to note Attending Assessment/Plan: Patient seen and examined. Admitted with diastolic CHF currently on IV Lasix. On 1 L oxygen saturating in high 90s. Denies any chest pain or shortness of breath. CT chest yesterday showed small pleural effusion . Awaiting pulmonary evaluation. Recommendations 1. Continue IV diuresis. Input and output monitoring -500 balance. 2. Follow-up pulmonary recommendations. 3. Continue Coumadin, therapeutic INR. 4. 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
[2016-04-12 08:33] LABS: ABSOLUTE BASOPHIL COUNT 0 /CUMM (0.0-0.2); ABSOLUTE EOSINOPHIL COUNT 0.2 /CUMM (0.0-0.7); ABSOLUTE GRANULOCYTE CT 4.5 /CUMM (1.4-6.5); ABSOLUTE LYMPH COUNT 0.5 /CUMM (1.2-3.4); ABSOLUTE MONOCYTE COUNT 0.7 /CUMM (0.10-0.60); BASOPHIL % 0.7 % (0.0-2.0); GRANULOCYTE % 75.6 % (42.2-75.2); HEMATOCRIT 31.1 % (42-52); MEAN CORPUSCULAR HGB CONC 33.9 G/DL (33.0-37.0); MEAN CORPUSCULAR VOLUME 91.6 FL (80.0-94.0); MEAN PLATELET VOLUME 11.6 FL (7.4-10.4); PLATELET COUNT 103 /CUMM (130-400); RBC DISTRIBUTION WIDTH 15.2 % (11.5-14.5)
[2016-04-12 08:34] LABS: PT 25.9 SEC (9.4-12.5)
--- NOTE | 2016-04-12 09:41 | Cons- Pulmonary ---
General Information and HPI Consulting Request Date of Consult: 04/12/16 Requested By: alireza Reason for Consult: Shortness of breath History of Present Illness: Patient is an 85-year-old without prior history of respiratory disease admitted in December for congestive heart failure admitted because of 2 days of progressive shortness of breath without fevers chills night sweats sputum production or chest pain. As noted to have increased lower extremity edema and his BNP was elevated. Chest x-ray did not suggest CHF however a CAT scan showed small bilateral effusions and nonspecific peribronchial groundglass opacities associated with pathologic adenopathy. Patient is diuresed and feels his respiratory status is back to baseline Allergies/Medications Allergies: Coded Allergies: NO KNOWN ALLERGIES (01/04/16) Home Med List: Amlodipine Besylate 10 MG TABLET 1 TAB PO QPM HEART (Reported) Atenolol 50 MG TABLET 1 TAB PO DAILY HEART (Reported) Calcitriol 0.25 MCG CAPSULE 1 CAP PO DAILY SUPPLEMENT (Reported) Ergocalciferol (Vitamin D2) (Drisdol) 50,000 UNIT CAPSULE 1 CAP PO Q 2 WEEKS SUPPLEMENT (Reported) Furosemide 40 MG TABLET 1 TAB PO DAILY WATER PILL (Reported) Lisinopril 40 MG TABLET 1 TAB PO DAILY HTN (Reported) Pioglitazone HCl (Actos) 15 MG TABLET 1 TAB PO QPM DIABETES (Reported) Saxagliptin HCl (Onglyza) 2.5 MG TABLET 1 TAB PO QPM DIABETES (Reported) Simvastatin (Zocor*) 20 MG TABLET 1 TAB PO QPM CHOLESTEROL (Reported) Terazosin HCl 10 MG CAPSULE 10 CAP PO QPM BPH (Reported) Warfarin Sodium (Coumadin) 2 MG TABLET 1 TAB PO AD BLOOD THINNER (Reported) Review of Systems Review of Systems Constitutional: Denies: chills, fever, weakness. Cardiovascular: Reports: edema, peripheral edema. Denies: chest pain. Respiratory: Reports: short of breath. Denies: cough, sputum production, wheezing. GI: Denies: abdominal pain, diarrhea, melena. 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 FH: esophageal cancer FATHER Cardiac disorder in father Relation not specified for: *No pertinent family history Psychosocial History Where Do You Live? Home Who Do You Live With? spouse Services at Home: Nursing, None Primary Language: Chinese Smoking Status: Never Smoked ETOH Use: two drinks per day Illicit Drug Use: denies illicit drug use Other Social History: One child in an accidental Functional Ability ADLs Independent: dressing, eating, toileting, bathing. Ambulation: independent IADLs Independent: shopping, housework, finances, food prep, telephone, transportation , medication admin. ECHO Results (as available) Date of last Echo 04/10/16 EF% 60 Exam & Diagnostic Data Last 24 Hrs of Vital Signs/I&O Vital Signs Date Time Temp Pulse Resp B/P Pulse O2 O2 Flow FiO2 Ox Delivery Rate 04/12 0847 150/60 04/12 0847 150/60 04/12 0730 97.7 56 20 150/60 96 Nasal 1.0L Cannula 04/12 0000 Nasal 1.0L Cannula 04/11 2302 97.4 63 18 140/62 94 Nasal Cannula 04/11 2222 93 Nasal 1.0L Cannula 04/11 1822 97.8 68 18 138/60 94 04/11 1600 98 Nasal 1.0L Cannula 04/11 1117 97 Nasal 2.0L Cannula 04/11 1055 94 Nasal 2.0L Cannula 04/11 1008 59 140/70 04/11 1007 59 140/70 Intake & Output 04/12 1600 04/12 0800 04/12 0000 Intake Total 630 Output Total 590 Balance 40 Intake, IV 280 Intake, Oral 350 Output, Urine 590 Patient 222 lb Weight Oxygen saturation 1 L 96% HEENT exam shows no adenopathy exam of his chest shows somewhat diminished breath sounds and basilar crackles there are no wheezes cardiac exam shows regular S1 and S2 without murmurs abdominal exam is somewhat distended soft nontender extremities have 1-2+ symmetrical edema Last 48 Hrs of Labs/Aniket: Laboratory Tests 04/12/16 0625: PT 25.9 H, INR 2.49 H, CBC w Diff NO MAN DIFF REQ, RBC 3.40 L, MCV 91.6, MCH 31.0, RDW 15.2 H, MPV 11.6 H, Gran % 75.6 H, Lymphocytes % 9.0 L, Monocytes % 11.7 H, Eosinophils % 3.0, Basophils % 0.7, Absolute Granulocytes 4.5, Absolute Lymphocytes 0.5 L, Absolute Monocytes 0.7 H, Absolute Eosinophils 0.2 , Absolute Basophils 0, PUBS MCHC 33.9 04/11/16 0625: Anion Gap 11, Estimated GFR 26 L, BUN/Creatinine Ratio 19.6, PT 26.3 H, INR 2.53 H, CBC w Diff NO MAN DIFF REQ, RBC 3.64 L, MCV 92.7, MCH 30.8, RDW 15.8 H, MPV 12.4 H, Gran % 76.2 H, Lymphocytes % 9.9 L, Monocytes % 10.3 H, Eosinophils % 3.0, Basophils % 0.6, Absolute Granulocytes 5.1, Absolute Lymphocytes 0.7 L, Absolute Monocytes 0.7 H, Absolute Eosinophils 0.2, Absolute Basophils 0, PUBS MCHC 33.2 04/10/16 1930: Ref Lab Test Result Pending, Ur Random Creatinine Pending, Urine Total Volume Pending, Urine Creatinine Pending 04/10/16 1000: Urine Total Volume Cancelled, Ur Total Protein 24 Hr Cancelled Assessment/Plan Impression/Plan: 85-year-old gentleman with chronic kidney disease history of congestive heart failure admitted with increased shortness breath which has responded to diuresis. Significance of his nonspecific groundglass opacities is uncertain as is the pathologic adenopathy. Differential diagnosis includes atypical congestive heart failure pattern. Infection. This could be an atypical pattern for sarcoid. His chronic kidney disease has been present over 5 years making pulmonary renal syndrome less likely Recommendations: Taper FiO2 and assess oxygen saturations. Patient should have repeat CAT scan after he is euvolemic. Further evaluation of the pathologic adenopathy can be done as outpatient with CT of abdomen and pelvis and consideration of PET scan. Assess quick flu and sputum C&S. Consult Acknowledgment - Thank you for your consult request.
--- NOTE | 2016-04-12 12:19 | PN- Cardiology ---
Subjective Subjective: Overall, the patient appears to be improving slowly. Yesterday, he did desaturate with ambulation. Follow-up evaluation pending today. Currently off of oxygen. Pulmonary input noted. Objective Vital Signs and I&Os Vital Signs Date Time Temp Pulse Resp B/P Pulse O2 O2 Flow FiO2 Ox Delivery Rate 04/12 0950 94 Room Air 04/12 0854 Nasal 1.0L Cannula 04/12 0847 150/60 04/12 0847 150/60 04/12 0730 97.7 56 20 150/60 96 Nasal 1.0L Cannula 04/12 0000 Nasal 1.0L Cannula 04/11 2302 97.4 63 18 140/62 94 Nasal Cannula 04/11 2222 93 Nasal 1.0L Cannula 04/11 1822 97.8 68 18 138/60 94 04/11 1600 98 Nasal 1.0L Cannula Intake & Output 04/12 1600 04/12 0800 04/12 0000 04/11 1600 04/11 0800 04/11 0000 Intake Total 630 540 120 430 Output Total 590 550 650 690 Balance 40 -10 -530 -260 Intake, IV 280 10 Intake, Oral 350 540 120 420 Number 1 Bowel Movements Output, Urine 590 550 650 690 Patient 222 lb 226 lb Weight Physical Exam: General: WD, WN, WM in NAD with VSS HEENT: normal Neck: JVP normal, Carotids normal bilaterally. Chest: scattered rhoncho Heart: S1, S2, 1-2 / 6 systolic murmur Abdomen: Normal Ext: LE edema PV: normal bilaterally Current Medications: Current Medications Sig/Nidia Start time Last Medication Dose Route Stop Time Status Admin Acetaminophen 650 MG Q6P PRN 04/09 1545 AC PO Albuterol Sulfate 3 ML Q4P PRN 04/10 1215 AC 04/10 INH 1209 Amlodipine Besylate 5 MG DAILY 04/11 1000 AC 04/12 PO 0847 Atenolol 50 MG DAILY 04/10 1000 AC 04/12 PO 0846 Atorvastatin Calcium 20 MG 1700 04/09 1700 AC 04/11 PO 1636 Azithromycin 500 MG DAILY@17004/11 1700 AC 04/11 Dextrose/Water 250 ML IV 1735 Calcitriol 0.25 MCG DAILY 04/10 1000 AC 04/12 PO 0846 Furosemide 40 MG 0800 & 1700 04/10 1700 AC 04/12 IV 0846 Insulin Human Regular 0 TIDAC/HS 04/09 1700 04/12 SC 0848 Patient Medication 1 UNIT ONE NR 04/12 1045 VT Teaching ED 04/12 1100 Tamsulosin HCl 0.4 MG DAILY 04/10 1000 AC 04/12 PO 0847 Warfarin Sodium 2 MG ONCE ONE 04/12 1030 DC 04/12 PO 04/12 1031 1152 Results Last 48 Hrs of Labs/Mics: Laboratory Tests 04/12/16 0625: PT 25.9 H, INR 2.49 H, CBC w Diff NO MAN DIFF REQ, RBC 3.40 L, MCV 91.6, MCH 31.0, RDW 15.2 H, MPV 11.6 H, Gran % 75.6 H, Lymphocytes % 9.0 L, Monocytes % 11.7 H, Eosinophils % 3.0, Basophils % 0.7, Absolute Granulocytes 4.5, Absolute Lymphocytes 0.5 L, Absolute Monocytes 0.7 H, Absolute Eosinophils 0.2 , Absolute Basophils 0, PUBS MCHC 33.9 04/11/16 0625: Anion Gap 11, Estimated GFR 26 L, BUN/Creatinine Ratio 19.6, PT 26.3 H, INR 2.53 H, CBC w Diff NO MAN DIFF REQ, RBC 3.64 L, MCV 92.7, MCH 30.8, RDW 15.8 H, MPV 12.4 H, Gran % 76.2 H, Lymphocytes % 9.9 L, Monocytes % 10.3 H, Eosinophils % 3.0, Basophils % 0.6, Absolute Granulocytes 5.1, Absolute Lymphocytes 0.7 L, Absolute Monocytes 0.7 H, Absolute Eosinophils 0.2, Absolute Basophils 0, PUBS MCHC 33.2 04/10/16 1930: Ref Lab Test Result Pending, Ur Random Creatinine Pending, Urine Total Volume Pending, Urine Creatinine Pending Assessment/Plan Assessment/Plan Assessment: 1. Worsening dyspnea and LE edema with history of HFpEF 2. HTN 3. History of prior pulmonary HTN 4. Left pleural effusion noted on echocardiogram and abdominal ultrasound 5. Renal insufficiency. 6. Mild normocytic anemia 7. Elevated TSH 8. HLD 9. 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 -Noncontrast chest CT showed a small bilateral effusions with possible infiltrate. The patient is currently on IV azithromycin. Pulmonary input noted. -Continue Lasix with plans for transitioning to oral. Continue to monitor her intakes, outputs, etc. while here in the hospital. -Consider outpatient follow-up in the congestive heart failure clinic -The patient will need to follow-up closely with Aldo Romero MD post discharge. -Discussed with the patient. Continue telemetry? Yes
--- NOTE | 2016-04-12 12:57 | PN- Diabetes ---
Assessment/Plan Assessment: The patient feels improved. His pioglitazone has been stopped at the time of admission because of congestive heart failure. He has undergone is significant diuresis with improvement in his breathing. Abdominal ultrasound shows no evidence of ascites. At the present time the patient is on low-dose insulin coverage before meals only. His fingerstick sugars 111, 108, 111, 99, 95 and 100. At home, he was on pioglitazone 15 mg daily and Onglyza 2.5 mg daily for his DM. Plan: 1. continue the current insulin regimen as inpatient; 2. monitor FSGs; 3. If he is medically stable for discharge, the discharge plan for DM --Onglyza 2.5 mg daily; --stop pioglitazone; --No insulin. Subjective Subjective: He feels better. Objective Last 24 Hrs of Vital Signs/I&O Vital Signs Date Time Temp Pulse Resp B/P Pulse O2 O2 Flow FiO2 Ox Delivery Rate 04/12 0950 94 Room Air 04/12 0854 Nasal 1.0L Cannula 04/12 0847 150/60 04/12 0847 150/60 04/12 0730 97.7 56 20 150/60 96 Nasal 1.0L Cannula 04/12 0000 Nasal 1.0L Cannula 04/11 2302 97.4 63 18 140/62 94 Nasal Cannula 04/11 2222 93 Nasal 1.0L Cannula 04/11 1822 97.8 68 18 138/60 94 04/11 1600 98 Nasal 1.0L Cannula Intake & Output 04/12 1600 04/12 0800 04/12 0000 Intake Total 630 Output Total 590 Balance 40 Intake, IV 280 Intake, Oral 350 Output, Urine 590 Patient 222 lb Weight Findings Pertinent Lab/Aniket Results: Laboratory Tests 04/12 0625 Coagulation PT (9.4 - 12.5 SEC) 25.9 H INR (0.90 - 1.17) 2.49 H Hematology CBC w Diff NO MAN DIFF REQ WBC (4.8 - 10.8 /CUMM) 6.0 RBC (4.70 - 6.10 /CUMM) 3.40 L Hgb (14.0 - 18.0 G/DL) 10.5 L Hct (42 - 52 %) 31.1 L MCV (80.0 - 94.0 FL) 91.6 MCH (27.0 - 31.0 PG) 31.0 RDW (11.5 - 14.5 %) 15.2 H Plt Count (130 - 400 /CUMM) 103 L MPV (7.4 - 10.4 FL) 11.6 H Gran % (42.2 - 75.2 %) 75.6 H Lymphocytes % (20.5 - 51.1 %) 9.0 L Monocytes % (1.7 - 9.3 %) 11.7 H Eosinophils % (0 - 5 %) 3.0 Basophils % (0.0 - 2.0 %) 0.7 Absolute Granulocytes (1.4 - 6.5 /CUMM) 4.5 Absolute Lymphocytes (1.2 - 3.4 /CUMM) 0.5 L Absolute Monocytes (0.10 - 0.60 /CUMM) 0.7 H Absolute Eosinophils (0.0 - 0.7 /CUMM) 0.2 Absolute Basophils (0.0 - 0.2 /CUMM) 0 PUBS MCHC (33.0 - 37.0 G/DL) 33.9
[2016-04-12] MEDS ORDERED: ONGLYZA2.5 M1 PO (13:04)
[2016-04-12 15:36] VITALS: BP 130/70
[2016-04-12 22:57] VITALS: BP 122/50
--- NOTE | 2016-04-13 03:34 | NUR ---
AT APPROXIMATELY 0300 PT HAD A 2 SECOND PAUSE FOLLOWED BY A 3 SECOND PAUSE. UPON ASSESSMENT PT SAID HE HAD JUST GOTTEN UP TO USE THE BATHROOM AND WAS FOUND SITTING IN HIS CHAIR WITH NO C/O AT THIS TIME. BP 160/60 HR 62 94% RA. 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 WILL CONTINUE TO MONITOR.
--- NOTE | 2016-04-13 05:17 | NUR ---
PT'S HR WAS 28 AND ASYMPTOMATIC AT THIS TIME. IMGE MARITZA AWARE. WILL CONTINUE TO MONITOR.
[2016-04-13 08:00] VITALS: BP 146/60
[2016-04-13 08:38] LABS: PT 29.4 SEC (9.4-12.5)
--- NOTE | 2016-04-13 10:53 | PN- Pulmonary ---
Subjective HPI/Critical Care Issues: Patient feels well ambulating without shortness breath on room air Objective Current Medications: Current Medications Sig/Nidia Start time Last Medication Dose Route Stop Time Status Admin Acetaminophen 650 MG Q6P PRN 04/09 1545 AC PO Albuterol Sulfate 3 ML Q4P PRN 04/10 1215 AC 04/10 INH 1209 Amlodipine Besylate 5 MG DAILY 04/11 1000 AC 04/13 PO 0931 Atenolol 50 MG DAILY 04/10 1000 DC 04/12 PO 0846 Atorvastatin Calcium 20 MG 1700 04/09 1700 AC 04/12 PO 1608 Atropine Sulfate 0.5 MG ONCE PRN 04/13 0945 AC IV Atropine Sulfate 0.5 MG ONCE ONE 04/13 0930 CAN IV 04/13 1200 Atropine Sulfate 0.5 MG ONCE ONE 04/13 0715 CAN IV 04/13 0716 Azithromycin 500 MG DAILY@1700 04/11 1700 AC 04/12 Dextrose/Water 250 ML IV 1609 Calcitriol 0.25 MCG DAILY 04/10 1000 AC 04/13 PO 0928 Furosemide 40 MG 0800 & 1700 04/10 1700 AC 04/13 IV 0848 Insulin Aspart 0 TIDAC/HS 04/12 1700 AC 04/13 SC 0848 Insulin Human Regular 0 TIDAC/HS 04/09 1700 DC 04/12 SC 1234 Patient Medication 1 UNIT ONE NR 04/12 1045 DC Teaching ED 04/12 1100 Tamsulosin HCl 0.4 MG DAILY 04/10 1000 AC 04/13 PO 0931 Vital Signs & I&O Last 24 Hrs of Vitals and I&O: Vital Signs Date Time Temp Pulse Resp B/P Pulse O2 O2 Flow FiO2 Ox Delivery Rate 04/13 0931 146/60 04/13 0931 146/60 04/13 0800 97.5 66 20 146/60 95 Room Air 04/12 2257 98.1 65 18 122/50 93 Room Air 04/12 1536 98.0 63 18 130/70 93 Intake & Output 04/13 1600 04/13 0800 04/13 0000 Intake Total 100 Output Total Balance 100 Intake, Oral 100 Patient 216 lb Weight Oxygen 93% exam of his chest shows clear lung garcia cardiac exam shows regular S1 and S2 without murmurs Impression/Plan Impression/Plan Impression/Plan: 85-year-old gentleman with chronic kidney disease history of congestive heart failure admitted with increased shortness breath which has responded to diuresis. Significance of his nonspecific groundglass opacities is uncertain as is the pathologic adenopathy. Differential diagnosis includes atypical congestive heart failure pattern. Infection. This could be an atypical pattern for sarcoid. His chronic kidney disease has been present over 5 years making pulmonary renal syndrome less likely Recommendations: Taper FiO2 and assess oxygen saturations. Patient should have repeat CAT scan after he is euvolemic. Further evaluation of the pathologic adenopathy can be done as outpatient with CT of abdomen and pelvis and consideration of PET scan. Assess quick flu and sputum C&S. Follow-up on prior recommendations no new pulmonary recommendations other than the patient appears markedly improved with diuresis antibiotics can now be given orally
--- NOTE | 2016-04-13 10:55 | PN- Housestaff ---
TERRY DOMINGUEZ,[facility] 04/13/16 1054: Subjective Follow-up For: Acute exacerbation of CHF Subjective: Patient was seen and examined this morning. He has no complaints this morning. He had no overnight events and is not in acute distress. Review of Systems Constitutional: Denies: see HPI. Objective Last 24 Hrs of Vital Signs/I&O Vital Signs Date Time Temp Pulse Resp B/P Pulse O2 O2 Flow FiO2 Ox Delivery Rate 04/13 1647 98.0 73 18 140/78 92 04/13 1440 92 Room Air 04/13 0931 146/60 04/13 0931 146/60 04/13 0800 97.5 66 20 146/60 95 Room Air 04/12 2257 98.1 65 18 122/50 93 Room Air Intake & Output 04/13 1600 04/13 0800 04/13 0000 Intake Total 100 Output Total Balance 100 Intake, Oral 100 Patient 97.976 kg Weight Physical Exam General Appearance: Alert, Oriented X3, Cooperative, No Acute Distress Skin: No Rashes, No Breakdown, No Significant Lesion Cardiovascular: Regular Rate, Normal S1, Normal S2, No Murmurs Lungs: Clear to Auscultation, Normal Air Movement Abdomen: Normal Bowel Sounds, Soft, No Tenderness Neurological: Normal Gait, Normal Speech, Strength at 5/5 X4 Ext, Normal Tone, Sensation Intact, Cranial Nerves 3-12 NL, Reflexes 2+ Extremities: No Clubbing, No Cyanosis, No Edema, Normal Pulses Assessment/Plan Assessment: This is a 85-year-old male with past medical history of hypertension, diabetes mellitus, hyperlipidemia, chronic kidney disease, stroke on Coumadin presented with progressive shortness breath. Whiteness upon presentation temperature 97.1 , pulse 65, respiratory rate 18, blood pressure 143/61, satting in high 90s on 2 L of nasal cannula oxygen. Pertinent labs H&H 10.8 and 33, platelets 101, creatinine 2.4, BUN 50, chest x- ray did not show any acute cardiopulmonary findings., Upon arrival he was in moderate respiratory distress with ambulation (satting around 85% )he received 60mg of IV Lasix and supplemental oxygen after which he reported improvement in his symptoms. We are currently monitoring him for the following conditions: Acute hypoxic respiratory failure secondary to CHF exacerbation: Supplemental oxygen as needed to keep oxygen saturation above 90%. TRC/nebs as needed . BNP 5160 CT chest had shown evidence of left sided pleural effusion and evidence of Abnormal adenopathy in the mediastinum, particularly in the right lower, pulmonology has recommended that patient will need repeat CT chest after he is you while in it. An outpatient evaluation of pathologic adenopathy seen on CT chest. Patient will be advised to follow-up with primary care physician upon discharge Cardiology consult appreciated, will f/u recs. Switched to oral Zithromax 250 by mouth daily Rule out ACS: Continuous cardiac monitoring for any arrhythmias Troponins and EKG negative for any acute findings. Patient has second-degree heart block with blocked PAC that used to present on nightly basis, patient had an episode of bradycardia last night as his heart rate went down to 28, the patient remains asymptomatic. Cardiology Aniya Watt MD the patient can continue on atenolol 25 mg daily and follow as an outpatient with Dr. Romero for Holter monitor and also at congestive heart failure clinic Switch furosemide to oral 40 twice a day, continue input and output measurement VIPUL Likely secondary to dehydration secondary to poor oral intake, creatinine 2.4 from . Avoid nephrotoxic drugs, lisinopril on hold, repeat BP in a.m. Nephrology consultation pending, we'll follow-up with recommendations Anemia H&H low but stable, no active bleeding, will monitor repeat labs History of diabetes mellitus Insulin sliding scale with frequent fingerstick glucose monitoring Diabetic diet Actos on hold as known to precipitate CHF. Endocrinology following, will follow recommendations. The discharge plan for DM is -Onglyza 2.5 mg daily, stop pioglitazone, No insulin. -f/u with his PMD or Dr. Borden after discharge. History of hyperlipidemia Continue home dose of atorvastatin 20 mg daily History of hypertension We'll continue home dose of amlodipine 10 mg daily along with blood pressure monitoring every shift. History of stroke Patient has been on Coumadin ever since stroke in 1994. He takes him a gram of Coumadin on Thursday to Thursday, will get INR and dose Coumadin accordingly INR today is 2.83 Diet Diabetic DVT prophylaxis with Coumadin Patient is full code Problem List: 1. Congestive heart failure 2. CHF exacerbation 3. VIPUL (acute kidney injury) 4. CKD (chronic kidney disease) 5. Diabetes Pain Ratin Pain Location: n/a Pain Goal: Pain 4 or less Pain Plan: see medication Tomorrow's Labs & Rationales: cbc, cmp, inr BELL DOMINGUEZ,[facility] 04/13/16 1132: Attending MD Review Statement Attending Statement Attending MD Statement: examined this patient, discuss w/resident/PA/MACHINE FEATHEREDGER AND REDUCER, agreed w/resident/PA/MACHINE FEATHEREDGER AND REDUCER, discussed with family, reviewed EMR data (avail), discussed with nursing, discussed with case mgmt, reviewed images, amended to note Attending Assessment/Plan: Patient seen and examined. Admitted with diastolic CHF currently on IV Lasix. On room air saturating in mid 90s. Denies any chest pain or shortness of breath. CT chest yesterday showed small pleural effusion . Overnight noted to be bradycardic and lowest event was 28 and had pauses. Asymptomatic at time. Recommendations 1. Switch IV Lasix to by mouth if okay with Dr. Watt. Input and output monitoring. 2. Keep atropine at bedside for bradycardia. Hold atenolol .Please inform Dr. Watt regarding the same. 3. Continue Coumadin, therapeutic INR. 4. Switch to by mouth Zithromax. 5. Appreciate custom tailor input.
--- NOTE | 2016-04-13 11:29 | PN- Diabetes ---
Assessment/Plan Assessment: The patient feels improved. His pioglitazone was stopped at the time of admission because of congestive heart failure. He has undergone is significant diuresis with improvement in his breathing. Abdominal ultrasound shows no evidence of ascites. At the present time the patient is on low-dose insulin coverage before meals only. His fingerstick sugars 95, 102, 85, 130 and 121. At home, he was on pioglitazone 15 mg daily and Onglyza 2.5 mg daily for his DM. Plan: patient is going home today. The discharge plan for DM is --Onglyza 2.5 mg daily; --stop pioglitazone; --No insulin. --f/u with his PMD or Dr. Borden after discharge. Subjective Subjective: Patient is going home today. Objective Last 24 Hrs of Vital Signs/I&O Vital Signs Date Time Temp Pulse Resp B/P Pulse O2 O2 Flow FiO2 Ox Delivery Rate 04/13 0931 146/60 04/13 0931 146/60 04/13 0800 97.5 66 20 146/60 95 Room Air 04/12 2257 98.1 65 18 122/50 93 Room Air 04/12 1536 98.0 63 18 130/70 93 Intake & Output 04/13 1600 04/13 0800 04/13 0000 Intake Total 100 Output Total Balance 100 Intake, Oral 100 Patient 216 lb Weight Findings Pertinent Lab/Aniket Results: Laboratory Tests 04/13 0640 Chemistry Sodium (137 - 145 mmol/L) 142 Potassium (3.5 - 5.1 mmol/L) 3.6 Chloride (98 - 107 mmol/L) 104 Carbon Dioxide (22 - 30 mmol/L) 28 Anion Gap (5 - 16) 10 BUN (9 - 20 mg/dL) 55 H Creatinine (0.7 - 1.2 mg/dL) 2.2 H Estimated GFR (>60 ml/min) 29 L BUN/Creatinine Ratio (7 - 25 %) 25.0 Coagulation PT (9.4 - 12.5 SEC) 29.4 H INR (0.90 - 1.17) 2.83 H
--- NOTE | 2016-04-13 14:57 | PN- Cardiology ---
Subjective Subjective: Clinically, the patient appears to be doing well. His respiratory status has improved. He is ambulating. Overnight, he continues to have episodes of transient bradycardia related to Wenckebach. No significant daytime episodes. Objective Vital Signs and I&Os Vital Signs Date Time Temp Pulse Resp B/P Pulse O2 O2 Flow FiO2 Ox Delivery Rate 04/13 1440 92 Room Air 04/13 0931 146/60 04/13 0931 146/60 04/13 0800 97.5 66 20 146/60 95 Room Air 04/12 2257 98.1 65 18 122/50 93 Room Air 04/12 1536 98.0 63 18 130/70 93 Intake & Output 04/13 1600 04/13 0800 04/13 0000 04/12 1600 04/12 0800 04/12 0000 Intake Total 100 430 630 Output Total 800 590 Balance 100 -370 40 Intake, IV 30 280 Intake, Oral 100 400 350 Output, Urine 800 590 Patient 216 lb 222 lb Weight Physical Exam: General: WD, WN, WM in NAD with VSS HEENT: normal Neck: JVP normal, Carotids normal bilaterally. Chest: scattered rhoncho Heart: S1, S2, 1-2 / 6 systolic murmur Abdomen: Normal Ext: LE edema PV: normal bilaterally Current Medications: Current Medications Sig/Nidia Start time Last Medication Dose Route Stop Time Status Admin Acetaminophen 650 MG Q6P PRN 04/09 1545 AC PO Albuterol Sulfate 3 ML Q4P PRN 04/10 1215 AC 04/10 INH 1209 Amlodipine Besylate 5 MG DAILY 04/11 1000 AC 04/13 PO 0931 Atenolol 25 MG DAILY 04/14 1000 AC PO Atenolol 50 MG DAILY 04/10 1000 DC 04/12 PO 0846 Atorvastatin Calcium 20 MG 1700 04/09 1700 AC 04/12 PO 1608 Atropine Sulfate 0.5 MG ONCE PRN 04/13 0945 AC IV Atropine Sulfate 0.5 MG ONCE ONE 04/13 0930 CAN IV 04/13 1200 Atropine Sulfate 0.5 MG ONCE ONE 04/13 0715 CAN IV 04/13 0716 Azithromycin 500 MG DAILY@1700 04/11 1700 AC 04/12 Dextrose/Water 250 ML IV 1609 Calcitriol 0.25 MCG DAILY 04/10 1000 AC 04/13 PO 0928 Furosemide 40 MG 0800 & 1700 04/10 1700 AC 04/13 IV 0848 Insulin Aspart 0 TIDAC/HS 04/12 1700 AC 04/13 SC 1221 Insulin Human Regular 0 TIDAC/HS 04/09 1700 DC 04/12 SC 1234 Tamsulosin HCl 0.4 MG DAILY 04/10 1000 AC 04/13 PO 0931 Results Last 48 Hrs of Labs/Mics: Laboratory Tests 04/13/16 0640: Anion Gap 10, Estimated GFR 29 L, BUN/Creatinine Ratio 25.0, PT 29.4 H, INR 2.83 H 04/12/16 0625: PT 25.9 H, INR 2.49 H, CBC w Diff NO MAN DIFF REQ, RBC 3.40 L, MCV 91.6, MCH 31.0, RDW 15.2 H, MPV 11.6 H, Gran % 75.6 H, Lymphocytes % 9.0 L, Monocytes % 11.7 H, Eosinophils % 3.0, Basophils % 0.7, Absolute Granulocytes 4.5, Absolute Lymphocytes 0.5 L, Absolute Monocytes 0.7 H, Absolute Eosinophils 0.2 , Absolute Basophils 0, PUBS MCHC 33.9 Assessment/Plan Assessment/Plan Assessment: 1. Worsening dyspnea and LE edema with history of HFpEF 2. HTN 3. History of prior pulmonary HTN 4. Left pleural effusion noted on echocardiogram and abdominal ultrasound 5. Renal insufficiency. 6. Mild normocytic anemia 7. Elevated TSH 8. HLD 9. History of CVA on warfarin with therapeutic INR line 10. Episodic nocturnal bradycardia, likely related to Mobitz 1 AV block Recommendations: -The patient has improved clinically with about 1600 mL negative fluid balance. -Noncontrast chest CT showed a small bilateral effusions with possible infiltrate. The patient is currently on IV azithromycin. Pulmonary input noted. -Lasix transition to oral Continue to monitor her intakes, outputs, etc. while here in the hospital. -Consider outpatient follow-up in the congestive heart failure clinic -The patient will need to follow-up closely with Aldo Romero MD post discharge. -Discussed with the patient. -The patient's episodes of nocturnal bradycardia related to second-degree block and blocked PACs has been present on a nightly basis. There are no significant episodes of daytime bradycardia. The patient remains asymptomatic. I do not believe this is a reason to keep the patient in the hospital. We can decrease the patient's atenolol dose to 25 mg daily. This can be followed up as an outpatient with an outpatient Holter monitor at Dr. Romero's office. Continue telemetry? Yes
[2016-04-13 16:47] VITALS: BP 140/78
[2016-04-14 00:17] VITALS: BP 118/72
--- NOTE | 2016-04-14 07:18 | PN- Housestaff ---
See Addendum Subjective Follow-up For: Acute exacerbation of CHF Tele-Events Since Last Visit: Shelia, heart rate 67-76, first-degree heart block, bradycardia to 30. Subjective: Patient seen and examined this morning. He was sitting in his recliner in no acute distress, he is off oxygen now and complains no shortness of breath, chest pain, dizziness, palpitation, lower leg edema has subsided. He endorses wishes to go home today. Has been afebrile, other vitals remained within normal limits. Review of Systems Constitutional: Denies: chills, fever. Cardiovascular: Denies: chest pain, palpitations. Respiratory: Denies: cough, short of breath, sputum production. Gastrointestinal: Denies: abdominal pain, constipation, diarrhea, nausea, vomiting. Genitourinary: Denies: dysuria, frequency. Objective Last 24 Hrs of Vital Signs/I&O Vital Signs Date Time Temp Pulse Resp B/P Pulse O2 O2 Flow FiO2 Ox Delivery Rate 04/14 0811 97.7 73 20 150/66 92 Room Air 04/14 0017 98.5 77 20 118/72 92 04/13 1931 91 Room Air 04/13 1647 98.0 73 18 140/78 92 04/13 1440 92 Room Air 04/13 0931 146/60 04/13 0931 146/60 Intake & Output 04/14 1600 04/14 0800 04/14 0000 Intake Total 100 100 Output Total Balance 100 100 Intake, Oral 100 100 Patient 96.615 kg Weight Physical Exam General Appearance: Alert, Oriented X3, Cooperative, No Acute Distress Cardiovascular: Regular Rate, Normal S1, Normal S2, No Murmurs Lungs: Clear to Auscultation, Normal Air Movement Abdomen: Normal Bowel Sounds, No Tenderness Extremities: No Clubbing, No Cyanosis, No Edema Current Medications: Current Medications Sig/Nidia Start time Last Medication Dose Route Stop Time Status Admin Acetaminophen 650 MG Q6P PRN 04/09 1545 AC PO Albuterol Sulfate 3 ML Q4P PRN 04/10 1215 AC 04/13 INH 1930 Amlodipine Besylate 5 MG DAILY 04/11 1000 AC 04/13 PO 0931 Atenolol 25 MG DAILY 04/14 1000 AC PO Atorvastatin Calcium 20 MG 1700 04/09 1700 AC 04/13 PO 1811 Atropine Sulfate 0.5 MG ONCE PRN 04/13 0945 AC IV Atropine Sulfate 0.5 MG ONCE ONE 04/13 0930 CAN IV 04/13 1200 Atropine Sulfate 0.5 MG ONCE ONE 04/13 0715 CAN IV 04/13 0716 Azithromycin 250 MG DAILY 04/13 1727 AC 04/13 PO 2200 Azithromycin 500 MG DAILY@1700 04/11 1700 DC 04/12 Dextrose/Water 250 ML IV 1609 Calcitriol 0.25 MCG DAILY 04/10 1000 AC 04/13 PO 0928 Furosemide 40 MG 7:30 AM, & 4:30 PM 04/14 0730 AC 04/14 PO 0651 Furosemide 40 MG ONE ONE 04/13 1830 DC 04/13 PO 04/13 1831 2211 Furosemide 40 MG 0800 & 1700 04/10 1700 DC 04/13 IV 0848 Insulin Aspart 0 TIDAC/HS 04/12 1700 AC 04/13 SC 1812 Tamsulosin HCl 0.4 MG DAILY 04/10 1000 AC 04/13 PO 0931 Warfarin Sodium 2 MG ONCE ONE 04/13 1830 DC 04/13 PO 04/13 1831 2210 Last 24 Hrs of Lab/Aniket Results Last 24 Hrs of Labs/Mics: Laboratory Tests 04/14/16 0650: Sodium Pending, Potassium Pending, Chloride Pending, Carbon Dioxide Pending, Anion Gap Pending, BUN Pending, Creatinine Pending, BUN/Creatinine Ratio Pending , PT Pending, INR Pending, CBC w Diff Pending, WBC Pending, RBC Pending, Hgb Pending, Hct Pending, MCV Pending, MCH Pending, RDW Pending, Plt Count Pending, MPV Pending, PUBS MCHC Pending Assessment/Plan Assessment: This is a 85-year-old male with past medical history of hypertension, diabetes mellitus, hyperlipidemia, chronic kidney disease, stroke on Coumadin presented with progressive shortness breath. Whiteness upon presentation temperature 97.1 , pulse 65, respiratory rate 18, blood pressure 143/61, satting in high 90s on 2 L of nasal cannula oxygen. Pertinent labs H&H 10.8 and 33, platelets 101, creatinine 2.4, BUN 50, chest x- ray did not show any acute cardiopulmonary findings., Upon arrival he was in moderate respiratory distress with ambulation (satting around 85% )he received 60mg of IV Lasix and supplemental oxygen after which he reported improvement in his symptoms. We are currently monitoring him for the following conditions: Acute hypoxic respiratory failure secondary to CHF exacerbation: Supplemental oxygen as needed to keep oxygen saturation above 90%. TRC/nebs as needed . BNP 5160 CT chest had shown evidence of left sided pleural effusion and evidence of Abnormal adenopathy in the mediastinum, particularly in the right lower, pulmonology has recommended that patient will need repeat CT chest after he is you while in it. An outpatient evaluation of pathologic adenopathy seen on CT chest. Patient will be advised to follow-up with primary care physician upon discharge Cardiology consult appreciated, will f/u recs. Switched to oral Zithromax 250 by mouth daily, to complete a five-day course. Rule out ACS: Continuous cardiac monitoring for any arrhythmias Troponins and EKG negative for any acute findings. Patient has second-degree heart block with blocked PAC that used to present on nightly basis, patient had an episode of bradycardia last night as his heart rate went down to 28, the patient remains asymptomatic. Cardiology Aniya Watt MD lowered atenolol to 25 mg daily and follow as an outpatient with Dr. Romero for Holter monitor and also at congestive heart failure clinic. Switched furosemide to oral 40 twice a day, continue input and output measurement. VIPUL Likely secondary to dehydration secondary to poor oral intake, creatinine 2.4 from . Avoid nephrotoxic drugs, lisinopril on hold, repeat BP in a.m. Nephrology consultation pending, we'll follow-up with recommendations Anemia H&H low but stable, no active bleeding, will monitor repeat labs History of diabetes mellitus Insulin sliding scale with frequent fingerstick glucose monitoring Diabetic diet Actos on hold as known to precipitate CHF. Endocrinology following, will follow recommendations. The discharge plan for DM is -Onglyza 2.5 mg daily, stop pioglitazone, No insulin. -f/u with his PMD or Dr. Borden after discharge. History of hyperlipidemia Continue home dose of atorvastatin 20 mg daily History of hypertension We'll continue home dose of amlodipine 10 mg daily along with blood pressure monitoring every shift. History of stroke Patient has been on Coumadin ever since stroke in 1994. He takes him a gram of Coumadin on Thursday to Thursday, will get INR and dose Coumadin accordingly INR today is 2.83 Diet Diabetic DVT prophylaxis with Coumadin Patient is full code Problem List: 1. CKD (chronic kidney disease) 2. VIPUL (acute kidney injury) 3. CHF exacerbation Pain Ratin Pain Location: none Pain Goal: Remain pain free Pain Plan: tylenol Tomorrow's Labs & Rationales: None patient to be discharged Discharge Plan Discharge Disposition: home Stable for Discharge? Yes Anticipated Discharge (Day): today If Discharged Today/In 24 Hrs: DC summary done, CMR done
[2016-04-14] MEDS ORDERED: ATENOLOL25 M1 PO (07:38)
--- NOTE | 2016-04-14 07:41 | PN- Pulmonary ---
Subjective HPI/Critical Care Issues: Feels well shortness of breath has resolved he is ambulating on room air Objective Current Medications: Current Medications Sig/Nidia Start time Last Medication Dose Route Stop Time Status Admin Acetaminophen 650 MG Q6P PRN 04/09 1545 AC PO Albuterol Sulfate 3 ML Q4P PRN 04/10 1215 AC 04/13 INH 1930 Amlodipine Besylate 5 MG DAILY 04/11 1000 AC 04/13 PO 0931 Atenolol 25 MG DAILY 04/14 1000 AC PO Atorvastatin Calcium 20 MG 1700 04/09 1700 AC 04/13 PO 1811 Atropine Sulfate 0.5 MG ONCE PRN 04/13 0945 AC IV Atropine Sulfate 0.5 MG ONCE ONE 04/13 0930 CAN IV 04/13 1200 Atropine Sulfate 0.5 MG ONCE ONE 04/13 0715 CAN IV 04/13 0716 Azithromycin 250 MG DAILY 04/13 1727 AC 04/13 PO 2200 Azithromycin 500 MG DAILY@1700 04/11 1700 DC 04/12 Dextrose/Water 250 ML IV 1609 Calcitriol 0.25 MCG DAILY 04/10 1000 AC 04/13 PO 0928 Furosemide 40 MG 7:30 AM, & 4:30 PM 04/14 0730 AC 04/14 PO 0651 Furosemide 40 MG ONE ONE 04/13 1830 DC 04/13 PO 04/13 1831 2211 Furosemide 40 MG 0800 & 1700 04/10 1700 DC 04/13 IV 0848 Insulin Aspart 0 TIDAC/HS 04/12 1700 AC 04/13 SC 1812 Tamsulosin HCl 0.4 MG DAILY 04/10 1000 AC 04/13 PO 0931 Warfarin Sodium 2 MG ONCE ONE 04/13 1830 DC 04/13 PO 04/13 1831 2210 Vital Signs & I&O Last 24 Hrs of Vitals and I&O: Vital Signs Date Time Temp Pulse Resp B/P Pulse O2 O2 Flow FiO2 Ox Delivery Rate 04/14 0017 98.5 77 20 118/72 92 04/13 1931 91 Room Air 04/13 1647 98.0 73 18 140/78 92 04/13 1440 92 Room Air 04/13 0931 146/60 04/13 0931 146/60 04/13 0800 97.5 66 20 146/60 95 Room Air Intake & Output 04/14 0800 04/14 0000 04/13 1600 Intake Total Output Total Balance Patient 213 lb Weight Room air oxygen saturation 92% exam of his chest shows clear lung garcia are no wheezes heard cardiac exam shows regular S1 and S2 without murmurs Impression/Plan Impression/Plan Impression/Plan: 85-year-old gentleman with chronic kidney disease history of congestive heart failure admitted with increased shortness breath which has responded to diuresis. Significance of his nonspecific groundglass opacities is uncertain as is the pathologic adenopathy. Patient can be followed as an outpatient for repeat CT scan Recommendations: Outpatient follow-up for abnormal CT scan and pathologic adenopathy.
--- NOTE | 2016-04-14 07:49 | PN- Diabetes ---
Assessment/Plan Assessment: The patient feels improved. His pioglitazone was stopped at the time of admission because of congestive heart failure. He has undergone is significant diuresis with improvement in his breathing. Abdominal ultrasound shows no evidence of ascites. At the present time the patient is on low-dose insulin coverage before meals only. His fingerstick sugars yesterday were 121 before breakfast, 114 before lunch, 123 before dinner, and 201 at bedtime. At home, he was on pioglitazone 15 mg daily and Onglyza 2.5 mg daily for his DM. Plan: The patient's blood sugar was 201 at bedtime last night. However at the present time I would still discharge the patient on saxagliptin (Onglyza ) 2.5 mg daily and a careful diabetic diet. He should check his sugars twice a day at home before breakfast and before dinner. If they become elevated he may need to consider some insulin. Subjective Subjective: Feels improved Review of Systems Constitutional: Denies: chills, fever. Cardiovascular: Denies: chest pain. Respiratory: Denies: short of breath. Gastrointestinal: Denies: abdominal pain. Hematologic/Endocrine: Denies: polydipsia. Objective Last 24 Hrs of Vital Signs/I&O Vital Signs Date Time Temp Pulse Resp B/P Pulse O2 O2 Flow FiO2 Ox Delivery Rate 04/14 0017 98.5 77 20 118/72 92 04/13 1931 91 Room Air 04/13 1647 98.0 73 18 140/78 92 04/13 1440 92 Room Air 04/13 0931 146/60 04/13 0931 146/60 04/13 0800 97.5 66 20 146/60 95 Room Air Intake & Output 04/14 0800 04/14 0000 04/13 1600 Intake Total Output Total Balance Patient 213 lb Weight Vital Signs Date Time Temp Pulse Resp B/P Pulse O2 O2 Flow FiO2 Ox Delivery Rate 04/14 0017 98.5 77 20 118/72 92 04/13 1931 91 Room Air 04/13 1647 98.0 73 18 140/78 92 04/13 1440 92 Room Air 04/13 0931 146/60 04/13 0931 146/60 04/13 0800 97.5 66 20 146/60 95 Room Air Intake & Output 04/14 0800 04/14 0000 04/13 1600 Intake Total Output Total Balance Patient 213 lb Weight Physical Exam General Appearance: alert, awake Neck: normal inspection Respiratory: normal breath sounds Cardiovascular: regular rate/rhythm Extremities: normal inspection Current Medications: Current Medications Sig/Nidia Start time Last Medication Dose Route Stop Time Status Admin Acetaminophen 650 MG Q6P PRN 04/09 1545 AC PO Albuterol Sulfate 3 ML Q4P PRN 04/10 1215 AC 04/13 INH 1930 Amlodipine Besylate 5 MG DAILY 04/11 1000 AC 04/13 PO 0931 Atenolol 25 MG DAILY 04/14 1000 AC PO Atorvastatin Calcium 20 MG 1700 04/09 1700 AC 04/13 PO 1811 Atropine Sulfate 0.5 MG ONCE PRN 04/13 0945 AC IV Atropine Sulfate 0.5 MG ONCE ONE 04/13 0930 CAN IV 04/13 1200 Atropine Sulfate 0.5 MG ONCE ONE 04/13 0715 CAN IV 04/13 0716 Azithromycin 250 MG DAILY 04/13 1727 AC 04/13 PO 2200 Azithromycin 500 MG DAILY@1700 04/11 1700 DC 04/12 Dextrose/Water 250 ML IV 1609 Calcitriol 0.25 MCG DAILY 04/10 1000 AC 04/13 PO 0928 Furosemide 40 MG 7:30 AM, & 4:30 PM 04/14 0730 AC 04/14 PO 0651 Furosemide 40 MG ONE ONE 04/13 1830 DC 04/13 PO 04/13 1831 2211 Furosemide 40 MG 0800 & 1700 04/10 1700 DC 04/13 IV 0848 Insulin Aspart 0 TIDAC/HS 04/12 1700 AC 04/13 SC 1812 Tamsulosin HCl 0.4 MG DAILY 04/10 1000 AC 04/13 PO 0931 Warfarin Sodium 2 MG ONCE ONE 04/13 1830 DC 04/13 PO 04/13 1831 2210 Findings Pertinent Lab/Aniket Results: Laboratory Tests 04/14 0650 Chemistry Sodium Pending Potassium Pending Chloride Pending Carbon Dioxide Pending Anion Gap Pending BUN Pending Creatinine Pending BUN/Creatinine Ratio Pending Coagulation PT Pending INR Pending Hematology CBC w Diff Pending WBC Pending RBC Pending Hgb Pending Hct Pending MCV Pending MCH Pending RDW Pending Plt Count Pending MPV Pending PUBS MCHC Pending
[2016-04-14 08:11] VITALS: BP 150/66
[2016-04-14] MEDS ORDERED: AZITHROMYCIN250 M1 PO (08:30)
--- NOTE | 2016-04-14 08:32 | Discharge Summary ---
Visit Information Visit Dates Admission Date: 04/09/16 Discharge Date: 04/14/16 Hospital Course Course Attending Physician: RADHA KIM MD Primary Care Physician: CRYSTAL DOMINGUEZ,[facility] Course: This is a 85-year-old male with past medical history of hypertension, diabetes mellitus, hyperlipidemia, chronic kidney disease, stroke on Coumadin presented with progressive shortness breath. Whiteness upon presentation temperature 97.1 , pulse 65, respiratory rate 18, blood pressure 143/61, satting in high 90s on 2 L of nasal cannula oxygen. Pertinent labs H&H 10.8 and 33, platelets 101, creatinine 2.4, BUN 50, BNP 5160 chest x-ray did not show any acute cardiopulmonary findings., Upon arrival he was in moderate respiratory distress with ambulation (satting around 85% )he received 60mg of IV Lasix and supplemental oxygen after which he reported improvement in his symptoms. We are currently monitoring him for the following conditions: Acute hypoxic respiratory failure secondary to CHF exacerbation: Chest x-ray did not show any acute cardiopulmonary findings. BNP 5160, upon arrival he was in moderate respiratory distress with ambulation (satting around 85% ) Patient received supplemental oxygen as needed to keep oxygen saturation above 90%. TRC/nebs as needed . he was started on low-dose IV Lasix secondary to his poor kidney function, with strict I's and O's and weight monitoring. CT chest showed evidence of left sided pleural effusion and evidence of abnormal adenopathy in the mediastinum, particularly in the right lower, pulmonology has recommended that patient will need repeat CT chest after he is you while in it. An outpatient evaluation of pathologic adenopathy seen on CT chest. Patient advised to follow-up with primary care physician upon discharge for further evaluation. He was started on Zithromax 250 mg, to complete a five-day course. Patient advised to follow-up with advertising campaign manager and detention worker and primary care physician in 1 week upon discharge. he is to continue Lasix 40 mg upon discharge, patient advised to repeat BEP in one week to ensure good kidney function, dose of lisinopril decreased to 20 mg daily, patient twice to follow up with primary care physician, depending on renal function dose can be adjusted as needed. Atenolol has been discontinued, secondary to nocturnal bradycardia. Discuss with your advertising campaign manager for outpatient Holter monitor (Episodes of Mobitz type I 2nd degree AV block, and 2:1 AV block, with heart rate dropping into the low 30s during admission). Rule out ACS: Continuous cardiac monitoring for any arrhythmias, Troponins and EKG did not show any acute findings. Patient has second-degree heart block with episodes of a symptomaticnocturnal bradycardia. Cardiology recommended to discontinue atenolol, patient advised to follow-up with Dr. Romero for Holter monitor. he is also advised to enrole at heart failure clinic. VIPUL: Likely secondary to dehydration secondary to poor oral intake, creatinine 2.4 on presentation. Lisinopril was held initially, upon discharge patient retina was 2.1, lisinopril 20 mg was started patient advised to follow-up with primary care physician and get BEP checked and dose adjusted accordingly. Anemia H&H low but stable, no active bleeding. History of diabetes mellitus Insulin sliding scale with frequent fingerstick glucose monitoring Diabetic diet Actos discontinued as known to precipitate CHF. continued on Onglyza 2.5 mg daily upon discharge,patient advised to follow-up with Dr. carolina upon discharge. Endocrinology following, will follow recommendations. History of hyperlipidemia Continued on home dose of atorvastatin 20 mg daily History of hypertension Continued on home dose of amlodipine 10 mg daily along with blood pressure monitoring every shift. History of stroke patient continued on Coumadin dose as per INR daily. Diet Diabetic DVT prophylaxis with Coumadin Patient remained full code Complications: none Allergies: Coded Allergies: NO KNOWN ALLERGIES (01/04/16) Significant Procedures: none Pertinent Lab Results: Abnormal adenopathy in the mediastinum, particularly in the right lower azygoesophageal recess. Findings seem a little out of proportion to the degree of lung parenchymal opacification. Close clinical correlation and follow-up evaluation is recommended post treatment to document resolution of findings. Disposition Summary Disposition Principal Diagnosis: Acute on chronic HFpEF Acute kidney injury on chronic kidney disease Hypertension hyperlipidemia Additional Diagnosis: History of CVA on warfarin. Discharge Disposition: home or self care Discharge Instructions General Discharge Information Code Status: Full Code Patient's Diet: Diabetic Patient's Activity: As tolerated Follow-Up Instructions/Appts: Advised to follow-up with primary care physician, detention worker, advertising campaign manager in 1 week and have BP checked in a week, and discussed the CT findings with PCP and detention worker. Medications at Discharge Discharge Medications: Stop taking the following medications: Lisinopril (Lisinopril) 40 MG TABLET ORAL DAILY Days = 30 Atenolol (Atenolol) 50 MG TABLET ORAL DAILY Pioglitazone HCl (Actos) 15 MG TABLET ORAL Every night Continue taking these medications: Furosemide (Furosemide) 40 MG TABLET 1 Tablet ORAL DAILY Comments: Last Taken: 04/14/16 Time: 7:00 AM Calcitriol (Calcitriol) 0.25 MCG CAPSULE 1 Capsule ORAL DAILY Comments: Last Taken: 04/14/16 Time: 9:30 AM Ergocalciferol (Vitamin D2) (Drisdol) 50,000 UNIT CAPSULE 1 Capsule ORAL EVERY 2 WEEKS Terazosin HCl (Terazosin HCl) 10 MG CAPSULE 10 Capsule ORAL Every night Days = 30 Comments: NOT TAKEN IN HOSPTAL Amlodipine Besylate (Amlodipine Besylate) 10 MG TABLET 1 Tablet ORAL Every night Comments: Last Taken: 04/14/16 Time: 9:30 AM Simvastatin (Zocor*) 20 MG TABLET 1 Tablet ORAL Every night Comments: NOT GIVEN IN HOSPITAL ATORVISTATIN TAKEN IN ITS PLACE. Last Taken: 04/13/16 Time: 6:00 PM Saxagliptin HCl (Onglyza) 2.5 MG TABLET 1 Tablet ORAL Every night Comments: NOT TAKEN IN HOSPTIAL Warfarin Sodium (Coumadin) 2 MG TABLET 1 Tablet ORAL As Directed Comments: Last Taken: 04/13/16 Time: 10:00 PM Start taking the following new medications: Azithromycin (Azithromycin) 250 MG TABLET 1 Tablet ORAL DAILY Days = 2 No Refills Comments: Last Taken: 04/14/16 Time: 10:00 AM Lisinopril (Lisinopril) 20 MG TABLET 1 Tablet ORAL DAILY Qty = 30 No Refills Comments: NOT TAKEN IN HOSPITAL Copies To: RADHA KIM MD; CRYSTAL DOMINGUEZ,NAV; CARTER DOMINGUEZ,ERNIE Pfeiffer; ROSIO DOMINGUEZ,Kae KEYS; VIKY DOMINGUEZ,TONY Chu Attending MD Review Statement Documenting Attending: RADHA KIM MD Other Findings: The patient was seen and agree with the plan of care as outlined.
[2016-04-14 08:39] LABS: ABSOLUTE BASOPHIL COUNT 0 /CUMM (0.0-0.2); ABSOLUTE EOSINOPHIL COUNT 0.1 /CUMM (0.0-0.7); ABSOLUTE GRANULOCYTE CT 6.8 /CUMM (1.4-6.5); ABSOLUTE LYMPH COUNT 0.5 /CUMM (1.2-3.4); BASOPHIL % 0.4 % (0.0-2.0); EOSINOPHIL % 1.7 % (0-5); GRANULOCYTE % 79.7 % (42.2-75.2); HEMATOCRIT 32.3 % (42-52); MEAN CORPUSCULAR HGB 30.9 PG (27.0-31.0); MEAN CORPUSCULAR HGB CONC 33.9 G/DL (33.0-37.0); MEAN CORPUSCULAR VOLUME 91.2 FL (80.0-94.0); PLATELET COUNT 108 /CUMM (130-400); RED BLOOD CELL CT 3.54 /CUMM (4.70-6.10); WHITE BLOOD CELL COUNT 8.5 /CUMM (4.8-10.8)
[2016-04-14 09:25] VITALS: BP 150/66
[2016-04-14] MEDS ORDERED: LISINOPRIL20 M1 PO (11:07)
--- NOTE | 2016-04-14 11:38 | PN- Cardiology ---
Subjective Subjective: The patient reports that he is feeling well. Shortness of breath is significantly improved. gambling monitor reveals episodes of 2:1 AV block during the night with heart rate in the low 30s. Objective Vital Signs and I&Os Vital Signs Date Time Temp Pulse Resp B/P Pulse O2 O2 Flow FiO2 Ox Delivery Rate 04/14 1048 95 Room Air Room Air 04/14 0925 73 150/66 04/14 0925 73 150/66 04/14 0925 73 150/66 04/14 0811 97.7 73 20 150/66 92 Room Air 04/14 0017 98.5 77 20 118/72 92 04/13 1931 91 Room Air 04/13 1647 98.0 73 18 140/78 92 04/13 1440 92 Room Air Intake & Output 04/14 1600 04/14 0800 04/14 0000 04/13 1600 04/13 0800 04/13 0000 Intake Total 100 100 100 Output Total Balance 100 100 100 Intake, Oral 100 100 100 Patient 213 lb 216 lb Weight Physical Exam: Gen: NAD HEENT: normal Lungs: clear to auscultation, normal resp. effort Heart: RRR, S1, S2, 1/6 systolic murmur Abdomen: Soft, nontender, no masses Extremities: No clubbing, cyanosis, or edema. Neuro: Alert and oriented x 3, cranial nerves intact Current Medications: Current Medications Sig/Nidia Start time Last Medication Dose Route Stop Time Status Admin Acetaminophen 650 MG Q6P PRN 04/09 1545 AC PO Albuterol Sulfate 3 ML Q4P PRN 04/10 1215 AC 04/13 INH 1930 Amlodipine Besylate 5 MG DAILY 04/11 1000 AC 04/14 PO 0925 Atenolol 25 MG DAILY 04/14 1000 AC 04/14 PO 0925 Atorvastatin Calcium 20 MG 1700 04/09 1700 AC 04/13 PO 1811 Atropine Sulfate 0.5 MG ONCE PRN 04/13 0945 AC IV Azithromycin 250 MG DAILY 04/13 1727 AC 04/14 PO 0927 Azithromycin 500 MG DAILY@1700 04/11 1700 DC 04/12 Dextrose/Water 250 ML IV 1609 Calcitriol 0.25 MCG DAILY 04/10 1000 AC 04/14 PO 0925 Furosemide 40 MG 7:30 AM, & 4:30 PM 04/14 0730 04/14 PO 0651 Furosemide 40 MG ONE ONE 04/13 1830 DC 04/13 PO 04/13 1831 2211 Furosemide 40 MG 0800 & 1700 04/10 1700 DC 04/13 IV 0848 Insulin Aspart 0 TIDAC/HS 04/12 1700 AC 04/14 SC 0830 Tamsulosin HCl 0.4 MG DAILY 04/10 1000 AC 04/14 PO 0925 Warfarin Sodium 2 MG COUMADIN 1700 ONE 04/14 1700 AC PO 04/14 1701 Warfarin Sodium 2 MG ONCE ONE 04/13 1830 DC 04/13 PO 04/13 183 2210 Results Last 48 Hrs of Labs/Mics: Laboratory Tests 04/14/16 0650: Anion Gap 11, Estimated GFR 30 L, BUN/Creatinine Ratio 23.8, PT 28.0 H, INR 2.69 H, CBC w Diff NO MAN DIFF REQ, RBC 3.54 L, MCV 91.2, MCH 30.9, RDW 15.0 H, MPV 12.0 H, Gran % 79.7 H, Lymphocytes % 6.1 L, Monocytes % 12.1 H, Eosinophils % 1.7, Basophils % 0.4, Absolute Granulocytes 6.8 H, Absolute Lymphocytes 0.5 L, Absolute Monocytes 1.0 H, Absolute Eosinophils 0.1, Absolute Basophils 0, PUBS MCHC 33.9 04/13/16 0640: Anion Gap 10, Estimated GFR 29 L, BUN/Creatinine Ratio 25.0, PT 29.4 H, INR 2.83 H Assessment/Plan Assessment/Plan Assessment: 1. Acute on chronic HFpEF, improved 2. HTN 3. History of prior pulmonary HTN 4. Left pleural effusion noted on echocardiogram and abdominal ultrasound 5. Renal insufficiency. 6. Mild normocytic anemia 7. Elevated TSH 8. HLD 9. History of CVA on warfarin with therapeutic INR 10. Episodes of Mobitz type I 2nd degree AV block, and 2:1 AV block, with heart rate dropping into the low 30s Recommendations: * Discontinue atenolol, and do not restart on discharge given second-degree AV block * Restart lisinopril at 20 mg daily for blood pressure control. * The patient is clear for discharge from a cardiac standpoint. * Basic metabolic profile to be checked in one week as outpatient. * Follow up with Dr. Romero as outpatient. Continue telemetry? Yes
== END 2016-04-14 13:50 | DRG 291 ==
LOC: ENRESERVDT → ENRESERVTM → ERH 11:14 → ERHI 13:51 → 1NO 13:51 → ENPENDDIS 13:51 → 1NO 22:05
PROVIDERS: Physician Assistant; Student in an Organized Health Care Education/Training Program; ADMIT Internal Medicine
DX: I13.0 Hypertensive heart and chronic kidney disease with heart failure and stage 1 through stage 4 chronic kidney disease, or unspecified chronic kidney disease (principal); I50.33 Acute on chronic diastolic (congestive) heart failure; J96.01 Acute respiratory failure with hypoxia; N17.9 Acute kidney failure, unspecified; E86.0 Dehydration; N18.9 Chronic kidney disease, unspecified; Z79.84 Long term (current) use of oral hypoglycemic drugs; D64.9 Anemia, unspecified; E78.5 Hyperlipidemia, unspecified; Z86.73 Personal history of transient ischemic attack (TIA), and cerebral infarction without residual deficits; E11.65 Type 2 diabetes mellitus with hyperglycemia; N40.0 Benign prostatic hyperplasia without lower urinary tract symptoms
CPT/HCPCS: 1NSP; 84156; 36415; 81001; 82436; 82570; 87070; 87804; 87804-59; 93005; 93010; 93306; 96374; 97116-GO; 97161-GP; 97530-GO; J0456; J0461; J1940; J7060